=== PATIENT | female | born 1930 | race Caucasian/White ===

== ENCOUNTER 2018-03-01 10:19 | Inpatient (IN) | payer OTHER ==
--- OUTSIDE RECORDS SUMMARY | 2018-03-01 10:22 | XMS REPORT | Continuity of Care Document ---
:1930 Author Organization Interface Problems Problem Status Onset Date Classification Date Comments Source Reported Medications Medication Details Route Status Patient Ordering Order Source Instructions Provider Date Allergies, Adverse Reactions, Alerts Substance Category Reaction Severity Reaction Status Date Comments Source type Reported Immunizations Immunization Date Given Site Status Last Updated Comments Source Results Order Results Value Reference Date Interpretation Comments Source Name Range Vital Signs Vital Sign Value Date Comments Source Encounters Location Location Encounter Encounter Reason Attending ADM DC Status Source Details Type Number For Provider Date Date Visit Outpatient [id number] RAHUL 12/29 [facility] [id number] DAPHNE 02/02 [facility] [id number] DAPHNE 03/[address] [facility] [place] Procedures Procedure Code Date Perfomer Comments Source
--- NOTE | 2018-03-01 11:23 | ER ---
Nurse's Notes [facility] Name: Paulina Juarez Age: 87 yrs Sex: Female : 1930 Arrival Date: 03/01/2018 Time: 10:22 Bed 6 Private MD: Fernanda Chin C Diagnosis: Chest pain on breathing;Chronic obstructive pulmonary disease with (acute) exacerbation;Atrial fibrillation and flutter;Hypoxemia;Essential (primary) hypertension;Cardiomegaly Presentation: 03/01 10:36 Presenting complaint: Patient states: SOB that began 5 days ago. Pt states "I had about aa5 5 chest pains last night but it went away". Pt reports cough. Transition of care: patient was not received from another setting of care. Onset of symptoms was February 2018. Risk Assessment: Do you want to hurt yourself or someone else? Patient reports no desire to harm self or others. Initial Sepsis Screen: Does the patient meet any 2 criteria? No. Patient's initial sepsis screen is negative. Does the patient have a suspected source of infection? No. Patient's initial sepsis screen is negative. Care prior to arrival: None. 10:36 Method Of Arrival: Ambulatory aa5 10:36 Acuity: AGUSTINA 3 aa5 Triage Assessment: 10:50 General: Behavior is calm, cooperative. Respiratory: Onset: The symptoms/episode tw2 began/occurred 5 days ago, spouse reports he had noticed her coughing a bit more, pt states her inhalers are not working like they did before, the patient has moderate shortness of breath. Historical: - Allergies: 10:39 Latex, Natural Rubber; aa5 - PMHx: 10:39 Atrial Fib; Gout; Hypertension; aa5 10:40 COPD; aa5 - PSHx: 10:38 repair atrial septal defect; Cholecystectomy; Tonsillectomy; Tubal ligation; aa5 10:39 "open heart surgery to repair hole in the septum"; aa5 - Immunization history:: Pneumococcal vaccine is up to date, Flu vaccine is up to date. - Social history:: Smoking status: Patient/guardian denies using tobacco. - Ebola Screening: : No symptoms or risks identified at this time. - Family history:: not pertinent. Screenin:51 Abuse screen: Denies threats or abuse. Nutritional screening: No deficits noted. tw2 Tuberculosis screening: No symptoms or risk factors identified. Fall Risk None identified. Assessment: 10:49 General: Appears in no apparent distress. well groomed. Pain: Denies pain. Neuro: Level tw2 of Consciousness is awake, alert, obeys commands, Oriented to person, place, time, situation. Cardiovascular: Heart tones S1 S2 Capillary refill < 3 seconds Patient's skin is warm and dry. Rhythm is atrial fibrillation With PVC's. Respiratory: Reports shortness of breath at rest on exertion Airway is patent Respiratory effort is even, labored, Respiratory pattern is regular, symmetrical, Breath sounds with crackles bilaterally. GI: No signs and/or symptoms were reported involving the gastrointestinal system. Abdomen is flat. GI: Bowel sounds present X 4 quads. : No deficits noted. EENT: No deficits noted. Derm: No deficits noted. Musculoskeletal: Range of motion: intact in all extremities. 11:50 Reassessment: Patient appears in no apparent distress at this time. No changes from tw2 previously documented assessment. Patient and/or family updated on plan of care and expected duration. Pain level reassessed. Patient is alert, oriented x 3, equal unlabored respirations, skin warm/dry/pink. 12:59 Reassessment: Patient appears in no apparent distress at this time. No changes from tw2 previously documented assessment. Patient and/or family updated on plan of care and expected duration. Pain level reassessed. Patient is alert, oriented x 3, equal unlabored respirations, skin warm/dry/pink. Vital Signs: 10:39 BP 140 / 105; Pulse 69; Resp 16 S; Temp 98.0(TE); Pulse Ox 94% on R/A; Weight 54.39 kg aa5 (R); Height 5 ft. 3 in. (160.02 cm) (R); Pain 0/10; 11:50 BP 131 / 93; Pulse 77; Resp 15; Pulse Ox 99% on Nebulizer Mask; tw2 12:58 BP 144 / 85; Pulse 82; Resp 17; Pulse Ox 97% on 2 lpm NC; tw2 10:39 Body Mass Index 21.24 (54.39 kg, 160.02 cm) aa5 ED Course: 10:22 Patient arrived in ED. mr 10:23 Fernanda Chin MD is Private Physician. mr 10:37 Triage completed. aa5 10:37 Arm band placed on. aa5 10:43 Violetta Villegas RN is Primary Nurse. tw2 10:44 Placed in gown. Bed in low position. residential monitor on. Pulse ox on. NIBP on. tw2 10:50 Erasmo Muro MD is Attending Physician. radha 11:03 EKG done, by commercial service technician. reviewed by Erasmo Muro MD. at1 11:03 Inserted saline lock: 22 gauge in left antecubital area, using aseptic technique. Blood tw2 collected. 11:21 Fernanda Chin MD is Hospitalizing Provider. radha 12:00 X-ray completed. Portable x-ray completed in exam room. Patient tolerated procedure sw well. 12:01 XRAY Chest (1 view) In Process Unspecified. EDMS 13:02 Blood Culture Adult (2) Sent. tw2 13:02 No provider procedures requiring assistance completed. Patient admitted, IV remains in tw2 place. Administered Medications: 11:38 Drug: Xopenex 2.5 mg Route: Inhalation; tw2 13:01 Follow up: Response: No adverse reaction tw2 11:38 Drug: AtroVENT Aerosol 0.5 mg Route: Inhalation; tw2 13:01 Follow up: Response: No adverse reaction tw2 11:40 Drug: SOLU-Medrol 125 mg Route: IVP; Site: left antecubital; tw2 13:00 Follow up: Response: No adverse reaction tw2 11:42 Drug: Pepcid 20 mg Route: IVP; Site: left antecubital; tw2 12:59 Follow up: Response: No adverse reaction tw2 11:43 Drug: NS 0.9% 1000 ml Route: IV; Rate: 75 ml/hr; Site: left antecubital; tw2 12:59 Follow up: IV Status: Infusion continued upon admission tw2 12:40 Drug: Lasix 40 mg Route: IVP; Site: left antecubital; tw2 12:50 Follow up: Response: No adverse reaction tw2 12:42 Drug: Potassium Effervescent Tablet 25 mEq Route: PO; tw2 12:50 Follow up: Response: No adverse reaction tw2 Outcome: 11:22 Decision to Hospitalize by Provider. radha 13:05 Admitted to Med/surg via wheelchair, with oxygen, Report called to GRICEL Dixon tw2 13:05 Condition: stable 13:05 Instructed on the need for admit. 13:48 Patient left the ED. tw2 Signatures: Dispatcher [employer] EDErasmo Vanegas MD MD cha Rivera, Maria mr Mary Jane Dougherty, RN RN aa5 Brenda Sellers, manager program management EKG Tat1 Candi Bassett Tara, RN RN tw2 Corrections: (The following items were deleted from the chart) 10:56 10:49 Cardiovascular: Heart tones S1 S2 Capillary refill < 3 seconds Patient's skin is tw2 warm and dry. Rhythm is regular tw2
--- NOTE | 2018-03-01 11:23 | EDPHYS ---
Physician Documentation [facility] Name: Paulina Juarez Age: 87 yrs Sex: Female : 1930 Arrival Date: 03/01/2018 Time: 10:22 Bed 6 Private MD: Fernanda Chin C ED Physician Erasmo Muro HPI: 03/01 11:18 This 87 yrs old Female presents to ER via Ambulatory with complaints of radha Breathing Difficulty. 11:18 The patient has shortness of breath at rest, with light activity. Onset: The radha symptoms/episode began/occurred last night, 1 day(s) ago. Duration: The symptoms are chronic. The patient's shortness of breath has no apparent modifying factors. Associated signs and symptoms: The patient has no apparent associated signs or symptoms. Severity of symptoms: At their worst the symptoms were mild in the emergency department the symptoms are unchanged. Historical: - Allergies: 10:39 Latex, Natural Rubber; aa5 - PMHx: 10:39 Atrial Fib; Gout; Hypertension; aa5 10:40 COPD; aa5 - PSHx: 10:38 repair atrial septal defect; Cholecystectomy; Tonsillectomy; Tubal ligation; aa5 10:39 "open heart surgery to repair hole in the septum"; aa5 - Immunization history:: Pneumococcal vaccine is up to date, Flu vaccine is up to date. - Social history:: Smoking status: Patient/guardian denies using tobacco. - Ebola Screening: : No symptoms or risks identified at this time. - Family history:: not pertinent. ROS: 11:18 Constitutional: Negative for fever, chills, and weight loss, Eyes: Negative for injury, radha pain, redness, and discharge, ENT: Negative for injury, pain, and discharge, Neck: Negative for injury, pain, and swelling, Abdomen/GI: Negative for abdominal pain, nausea, vomiting, diarrhea, and constipation, Back: Negative for injury and pain, : Negative for injury, bleeding, discharge, and swelling, MS/Extremity: Negative for injury and deformity, Skin: Negative for injury, rash, and discoloration, Neuro: Negative for headache, weakness, numbness, tingling, and seizure, Psych: Negative for depression, anxiety, suicide ideation, homicidal ideation, and hallucinations, Allergy/Immunology: Negative for hives, rash, and allergies, Endocrine: Negative for neck swelling, polydipsia, polyuria, polyphagia, and marked weight changes, Hematologic/Lymphatic: Negative for swollen nodes, abnormal bleeding, and unusual bruising. 11:18 Constitutional: Positive for chills. 11:18 Cardiovascular: Positive for chest pain, palpitations. 11:18 Respiratory: Positive for cough, shortness of breath, wheezing, expiratory. Exam: 11:18 Constitutional: This is a well developed, well nourished patient who is awake, alert, radha and in no acute distress. Head/Face: Normocephalic, atraumatic. Eyes: Pupils equal round and reactive to light, extra-ocular motions intact. Lids and lashes normal. Conjunctiva and sclera are non-icteric and not injected. Cornea within normal limits. Periorbital areas with no swelling, redness, or edema. ENT: Nares patent. No nasal discharge, no septal abnormalities noted. Tympanic membranes are normal and external auditory canals are clear. Oropharynx with no redness, swelling, or masses, exudates, or evidence of obstruction, uvula midline. Mucous membranes moist. Neck: Trachea midline, no thyromegaly or masses palpated, and no cervical lymphadenopathy. Supple, full range of motion without nuchal rigidity, or vertebral point tenderness. No Meningismus. Chest/axilla: Normal chest wall appearance and motion. Nontender with no deformity. No lesions are appreciated. Cardiovascular: Regular rate and rhythm with a normal S1 and S2. No gallops, murmurs, or rubs. Normal PMI, no JVD. No pulse deficits. Abdomen/GI: Soft, non-tender, with normal bowel sounds. No distension or tympany. No guarding or rebound. No evidence of tenderness throughout. Back: No spinal tenderness. No costovertebral tenderness. Full range of motion. Female : Normal external genitalia. Skin: Warm, dry with normal turgor. Normal color with no rashes, no lesions, and no evidence of cellulitis. MS/ Extremity: Pulses equal, no cyanosis. Neurovascular intact. Full, normal range of motion. Neuro: Awake and alert, GCS 15, oriented to person, place, time, and situation. Cranial nerves II-XII grossly intact. Motor strength 5/5 in all extremities. Sensory grossly intact. Cerebellar exam normal. Normal gait. Psych: Awake, alert, with orientation to person, place and time. Behavior, mood, and affect are within normal limits. 11:18 Respiratory: the patient does not display signs of respiratory distress, Respirations: normal, Breath sounds: decreased breath sounds, that are mild, are scattered, rhonchi, that are mild, wheezing: expiratory is scattered. Vital Signs: 10:39 BP 140 / 105; Pulse 69; Resp 16 S; Temp 98.0(TE); Pulse Ox 94% on R/A; Weight 54.39 kg aa5 (R); Height 5 ft. 3 in. (160.02 cm) (R); Pain 0/10; 11:50 BP 131 / 93; Pulse 77; Resp 15; Pulse Ox 99% on Nebulizer Mask; tw2 12:58 BP 144 / 85; Pulse 82; Resp 17; Pulse Ox 97% on 2 lpm NC; tw2 10:39 Body Mass Index 21.24 (54.39 kg, 160.02 cm) aa5 MDM: 10:50 Patient medically screened. [facility] 11:18 Data reviewed: vital signs, nurses notes, lab test result(s), EKG, radiologic studies. [facility] 03/01 11:17 Order name: Basic Metabolic Panel [facility] 03/01 11:17 Order name: CBC with Diff; Complete Time: 11:59 radha 03/01 11:17 Order name: Ckmb; Complete Time: 11:59 [facility] 03/01 11:17 Order name: CPK; Complete Time: 11:59 radha 03/01 11:17 Order name: LFT's; Complete Time: 11:59 radha 03/01 11:17 Order name: Magnesium; Complete Time: 11:59 [facility] 03/01 11:17 Order name: NT PRO-BNP; Complete Time: 11:59 [facility] 03/01 11:17 Order name: PT-INR; Complete Time: 11:59 radha 03/01 11:17 Order name: Ptt, Activated; Complete Time: 11:59 [facility] 03/01 11:17 Order name: Troponin (emerg Dept Use Only); Complete Time: 11:59 [facility] 03/01 11:17 Order name: Lipase; Complete Time: 11:59 radha 03/01 11:17 Order name: Blood Culture Adult (2) radha 03/01 11:18 Order name: Basic Metabolic Panel; Complete Time: 11:59 EDMS 03/01 11:51 Order name: Basic Metabolic Panel EDAR 03/01 11:17 Order name: XRAY Chest (1 view); Complete Time: 13:25 [facility] 03/01 11:31 Order name: Echo with Doppler EDAR 03/01 11:51 Order name: Basic Metabolic Panel EDAR 03/01 11:51 Order name: CBC with Automated Diff EDMS 03/01 11:51 Order name: CBC with Automated Diff EDAR 03/01 11:51 Order name: NT PRO-BNP EDAR 03/01 11:51 Order name: NT PRO-BNP EDAR 03/01 11:51 Order name: Troponin I EDAR 03/01 11:51 Order name: Troponin I EDAR 03/01 11:51 Order name: Troponin I EDAR 03/01 11:51 Order name: Chest Single View EDAR 03/01 11:51 Order name: Chest Single View EDAR 03/01 11:17 Order name: EKG; Complete Time: 11:18 [facility] 03/01 11:17 Order name: Cardiac monitoring; Complete Time: 11:52 [facility] 03/01 11:17 Order name: EKG - Nurse/Tech; Complete Time: 11:52 [facility] 03/01 11:17 Order name: IV Saline Lock; Complete Time: 11:52 [facility] 03/01 11:17 Order name: Labs collected and sent; Complete Time: 11:52 [facility] 03/01 11:17 Order name: O2 Per Protocol; Complete Time: 11:52 [facility] 03/01 11:17 Order name: O2 Sat Monitoring; Complete Time: 11:52 [facility] 03/01 11:17 Order name: Urine Dipstick-Ancillary (obtain specimen); Complete Time: 13:02 [facility] 03/01 11:30 Order name: CONS Physician Consult [facility] 03/01 11:30 Order name: CONS Physician Consult [facility] 03/01 11:51 Order name: Heart Healthy [facility] 03/01 11:51 Order name: EKG Electrocardiogram [facility]AR 03/01 11:51 Order name: EKG Electrocardiogram EDAR Administered Medications: 11:38 Drug: Xopenex 2.5 mg Route: Inhalation; tw2 13:01 Follow up: Response: No adverse reaction tw2 11:38 Drug: AtroVENT Aerosol 0.5 mg Route: Inhalation; tw2 13:01 Follow up: Response: No adverse reaction tw2 11:40 Drug: SOLU-Medrol 125 mg Route: IVP; Site: left antecubital; tw2 13:00 Follow up: Response: No adverse reaction tw2 11:42 Drug: Pepcid 20 mg Route: IVP; Site: left antecubital; tw2 12:59 Follow up: Response: No adverse reaction tw2 11:43 Drug: NS 0.9% 1000 ml Route: IV; Rate: 75 ml/hr; Site: left antecubital; tw2 12:59 Follow up: IV Status: Infusion continued upon admission tw2 12:40 Drug: Lasix 40 mg Route: IVP; Site: left antecubital; tw2 12:50 Follow up: Response: No adverse reaction tw2 12:42 Drug: Potassium Effervescent Tablet 25 mEq Route: PO; tw2 12:50 Follow up: Response: No adverse reaction tw2 Disposition: 03/01/18 11:22 Hospitalization ordered by Fernanda Chin for Observation. Preliminary diagnosis are Chest pain on breathing, Chronic obstructive pulmonary disease with (acute) exacerbation, Atrial fibrillation and flutter, Hypoxemia, Essential (primary) hypertension, Cardiomegaly. - Bed requested for Telemetry/MedSurg (observation). - Status is Observation. tw2 - Condition is Fair. - Problem is new. - Symptoms have improved. UTI on Admission? No Signatures: Dispatcher [employer] EDMS Penny Brown Corey, MD MD cha Calderon, Audri RN RN aa5 Violetta Villegas RN RN tw2 Corrections: (The following items were deleted from the chart) 11:30 11:22 Hospitalization Ordered by A Giuseppe SOMMERS for Observation. Preliminary diagnosis is radha Chest pain on breathing; Chronic obstructive pulmonary disease with (acute) exacerbation; Atrial fibrillation and flutter; Hypoxemia. Bed requested for Telemetry/MedSurg (observation). Status is Observation. Condition is Fair. Problem is new. Symptoms have improved. UTI on Admission? No. radha 12:08 11:30 03/01/2018 11:22 Hospitalization Ordered by A Giuseppe SOMMERS for Observation. bd Preliminary diagnosis is Chest pain on breathing; Chronic obstructive pulmonary disease with (acute) exacerbation; Atrial fibrillation and flutter; Hypoxemia; Essential (primary) hypertension. Bed requested for Telemetry/MedSurg (observation). Status is Observation. Condition is Fair. Problem is new. Symptoms have improved. UTI on Admission? No. radha 12:18 12:08 03/01/2018 11:22 Hospitalization Ordered by A Giuseppe SOMMERS for Observation. radha Preliminary diagnosis is Chest pain on breathing; Chronic obstructive pulmonary disease with (acute) exacerbation; Atrial fibrillation and flutter; Hypoxemia; Essential (primary) hypertension. Bed requested for Telemetry/MedSurg (observation). Status is Observation. Condition is Fair. Problem is new. Symptoms have improved. UTI on Admission? No. bd 13:48 12:18 03/01/2018 11:22 Hospitalization Ordered by A Giuseppe SOMMERS for Observation. tw2 Preliminary diagnosis is Chest pain on breathing; Chronic obstructive pulmonary disease with (acute) exacerbation; Atrial fibrillation and flutter; Hypoxemia; Essential (primary) hypertension; Cardiomegaly. Bed requested for Telemetry/MedSurg (observation). Status is Observation. Condition is Fair. Problem is new. Symptoms have improved. UTI on Admission? No. radha
[2018-03-01 11:35] LABS: Absolute Lymphocytes (CBC) 1.4 K/uL (0.7-4.9); Absolute Monocytes 0.7 K/uL (0.1-1.3); Absolute Neutrophil 3.3 K/uL (1.8-8.0); Basophils % 1.2 % (0-1.3); Eosinophils % 3.1 % (0-4.4); Hematocrit 44.5 % (36.0-45.0); Lymphocytes % 24.7 % (15.3-44.8); MCH 31.2 pg (27.0-35.0); MCV 93.8 fL (80-100); MPV 9.1 fL (7.6-11.3); Monocytes % 11.9 % (3.3-12.3); RBC Red Blood Cell Count 4.74 M/uL (3.86-4.86)
[2018-03-01] MEDS ORDERED: IPRATROPIUM BROM 0.5MG/2.5ML ONE (11:36)
[2018-03-01] MEDS ORDERED: NA CHLORIDE 0.9% 1,000 ML ONE (11:36)
[2018-03-01] MEDS ORDERED: LEVALBUTEROL 1.25 MG/3 ML NEB ONE (11:36)
[2018-03-01] MEDS ORDERED: METHYLPREDNISOLONE 125 MG INJ ONE (11:36)
[2018-03-01] MEDS ORDERED: FAMOTIDINE 20 MG/2 ML VIAL IV ONE (11:37)
[2018-03-01] MEDS ORDERED: ACETAMINOPHEN 500 MG TAB PO PRN (11:48)
[2018-03-01] MEDS ORDERED: IPRATROPIUM BROM 0.5MG/2.5ML NEB PRN (11:48)
[2018-03-01] MEDS ORDERED: ONDANSETRON 4 MG/2 ML VIAL IV PRN (11:48)
[2018-03-01] MEDS ORDERED: ALBUTEROL 2.5 MG/3 ML NEB SOL NEB PRN (11:48)
[2018-03-01 11:52] LABS: Protime INR 1.19
[2018-03-01 11:57] LABS: ALT/SGPT 17 U/L (12-78); AST/SGOT 19 U/L (15-37); Albumin 4.1 g/dL (3.4-5.0); Alkaline Phosphatase 62 U/L (45-117); BUN Blood Urea Nitrogen 19 mg/dL (7-18); Bicarbonate 32 mmol/L (21-32); Bilirubin Direct 0.2 mg/dL (0-0.2); Bilirubin Total 0.6 mg/dL (0.2-1.0); CKMB Creatine Kinase MB 1.3 ng/mL (0.3-3.6); Creatine Phosphokinase 60 U/L (26-192); Glucose Level 96 mg/dL (74-106); Lipase 132 U/L (73-393); Magnesium 2.4 mg/dL (1.8-2.4); NT PRO-BNP 2654 pg/mL (<450); Potassium 4.4 mmol/L (3.5-5.1); Protein, Total 7.5 g/dL (6.4-8.2); Sodium Level 139 mmol/L (136-145); Troponin (Emerg Dept Use Only) < 0.02 ng/mL (0.0-0.045)
[2018-03-01] MEDS ORDERED: POTASSIUM 25 MEQ EFFERV TAB ONE (12:40)
[2018-03-01] MEDS ORDERED: FUROSEMIDE 40 MG/4 ML VIAL ONE (12:40)
--- NOTE | 2018-03-01 12:41 | RAD REPORT ---
EXAM DESCRIPTION: RAD - Chest Single View - 03/01/2018 12:04 pm CLINICAL HISTORY: COPD;Cough Chest pain. COMPARISON: Chest Pa And Lat (2 Views) dated 09/15/2016; CHEST SINGLE VIEW dated 08/16/2014; CHEST PA AND LAT 2 VIEW dated 04/24/2013; CHEST SINGLE VIEW dated 01/10/2010 FINDINGS: Portable technique limits examination quality. The lungs are emphysematous with linear scarring in both mid lungs. Significant cardiomegaly is seen. No displaced fractures.Sternotomy wires present. IMPRESSION: Prominent COPD. Advanced cardiomegaly.
[2018-03-01 13:39] VITALS: BMI 21.2
[2018-03-01 15:29] LABS: Urine Blood NEGATIVE (NEG); Urine Glucose NEGATIVE (NEG); Urine Protein NEGATIVE (NEG); Urine Specific Gravity 1.015 (1.005-1.030)
[2018-03-01] MEDS: METHYLPREDNISOLONE 40 MG INJ IV SCH (17:40)
--- NOTE | 2018-03-01 17:52 | EKG ---
Test Date: 2018-03-01 Test Time: 10:55:51 Slat Basket Top Maker: ROB MEASUREMENT RESULTS: Intervals: Rate: 59 IN: QRSD: 88 QT: 476 QTc: 471 [place]: P: IN: QRS: 80 T: -15 INTERPRETIVE STATEMENTS: Atrial fibrillation with slow ventricular response Voltage criteria for left ventricular hypertrophy ST & T wave abnormality, consider inferolateral ischemia or digitalis effect Prolonged QT Abnormal ECG Compared to ECG 08/16/2014 10:49:20 No significant changes Electronically Signed On 03-01-18 17:50:45 CDT by oMo Mann
[2018-03-01] MEDS ORDERED: HOME MED 1 EA UNK (Albuterol Sulfate [Proair Respiclick] 1 PUFF) IH PRN (20:08)
[2018-03-01] MEDS: APIXABAN 2.5 MG TABLET PO SCH (20:38)
[2018-03-01] MEDS: FAMOTIDINE 20 MG/2 ML VIAL IV SCH (20:38)
[2018-03-01] MEDS ORDERED: APIXABAN PO SCH (21:00)
[2018-03-01] MEDS ORDERED: HOME MED 1 EA UNK (Glycopyrrolate/Formoterol Fum [Bevespi Aerosphere Inhaler] 2 PUFF) PO SCH (21:00)
[2018-03-02] MEDS: METHYLPREDNISOLONE 40 MG INJ IV SCH ×2 (00:39→09:05)
--- NOTE | 2018-03-02 01:17 | HP ---
Date of Admission: 03/01/2018 Chief Complaint: Shortness of breath. History Of Present Illness: An 87-year-old female patient who woke up from sleep about 5 days ago wi th chest pain. The patient describes her pain as hard, pain in the center of the chest as if her hea rt was beating too hard and it happened 5 different times, and since that time, she has been having s hortness of breath. She denies any expectoration, fever, chills, nausea, vomiting. Today, she came into emergency room after she was evaluated, she was admitted to the hospital. When I saw her, her h usband was present with her at bedside. Allergies: NO KNOWN ALLERGIES, BUT SHE HAD MYALGIA TYPE OF SIDE EFFECT WITH STATINS. Medications: Allopurinol 300 mg daily, Bevespi inhaler 2 puffs 2 times a day, Claritin 10 mg daily a s needed, colchicine 0.6 mg p.o. 2 times a day as needed for gout, Eliquis 2.5 mg 2 times a day, meto prolol 50 mg p.o. 1 tablet in the morning and half a tablet in the evening, multivitamin daily, ProAi r inhaler 2 puffs every 4 to 6 hours as needed. Review of Systems: Respiratory: As mentioned above. Cardiovascular: As mentioned above. All other systems reviewed and negative. Past Medical History: Significant for hypertension, chronic atrial fibrillation, hyperlipidemia, gou t, diverticulosis, osteoarthritis at multiple sites, hypothyroidism, osteoporosis. Past Surgical History: Carpal tunnel surgery, cataract surgery, cholecystectomy, and repair of atria l septal defect. Family History: Significant for heart disease. Social History: Prior history of smoking, not at present time. Use of alcohol negative. Physical Examination: Vital Signs: This evening when I saw her, temperature 98.2, pulse 87, respiratory rate 20, blood pre ssure 150/86, oxygen saturation 96%. Height 5 feet 3 inches, weight 119 pounds. General: Awake, alert, oriented, not in distress. HEENT: Head atraumatic, normocephalic. Conjunctivae nonerythematous. Sclerae white. Mouth, no thr ush or edema noted. Ears/Nose, no mass, lesion, discharge noted. Neck: Supple. No JVD, lymph nodes, bruit, thyromegaly noted. Lungs: Presence of some rales noted in lower lung funez, not in respiratory distress. Heart: Normal heart sounds, no murmur or gallop. Abdomen: Soft, bowel sounds normal. No guarding, rigidity, tenderness, mass, hepatosplenomegaly, dis tention, or bruit noted. Extremities: No leg edema. No calf tenderness. Skin: No rash, ulcer, cellulitis. Lymphatics: No lymph node enlargement in neck, supraclavicular, infraclavicular region. Neuro: No focal neurological deficit. Chest: Unremarkable. External Genitalia: Deferred. Rectal: Deferred. Laboratory Data: Chest x-ray shows prominent COPD and presence of cardiomegaly. Electrocardiogram, atrial fibrillation with slow ventricular response. White count 5.6, hemoglobin 14.8, platelets 185. ProBNP 2654. Liver function tests unremarkable. Troponin less than 0.02. Lipase 132. Sodium 139 , potassium 4.4, chloride 103, bicarb 32, BUN 19, creatinine 0.70, glucose 96. Urinalysis negative. Impression: 1.Congestive heart failure. 2.Chronic atrial fibrillation. 3.Hypertension. 4.Chronic anticoagulation therapy. 5.Osteoarthritis, multiple sites. 6.Hyperlipidemia. 7.Diverticulosis. 8.Chronic obstructive pulmonary disease. 9.Hypothyroidism. 10.Diverticulosis. Plan: Admit the patient to hospital for further evaluation and management of this problem. The forrest ent is appropriate for inpatient and is expected to spend 2 midnights in hospital. We will go ahead and continue her home medications per order. Echocardiogram will be done. Consult Cardiology. Card iac enzymes negative so far and we will go ahead and get a CT scan of the chest per PE protocol. Las ix 40 mg IV was given in the emergency room and we will go ahead and give Lasix 20 mg IV 2 times a da y, starting tomorrow. Details and plan of treatment discussed with her. ANTONIO/RENY Voice ID: [id number]
[2018-03-02 04:43] LABS: Absolute Lymphocytes (CBC) 1.1 K/uL (0.7-4.9); Absolute Monocytes 0.1 K/uL (0.1-1.3); Absolute Neutrophil 4.9 K/uL (1.8-8.0); Basophils % 0.2 % (0-1.3); Hematocrit 42.7 % (36.0-45.0); Lymphocytes % 18.6 % (15.3-44.8); MCH 30.9 pg (27.0-35.0); MPV 9.4 fL (7.6-11.3); Monocytes % 1.5 % (3.3-12.3); RBC Red Blood Cell Count 4.59 M/uL (3.86-4.86)
[2018-03-02] MEDS: METOPROLOL XL 50 MG TAB PO SCH (06:00)
--- NOTE | 2018-03-02 07:06 | CON ---
Date of Consultation: 03/02/[address] Chin's service on 03/01/2018. I saw the patient on 03/02/2018. Reason For Consultation: Chest pain, shortness of breath, and atrial fibrillation. History Of Present Illness: Ms. Juarez is an 87-year-old woman with history of atrial fibrillation jeff t is chronic for which she takes Eliquis and Toprol. 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 She came in with shortness of breath, chest pain, and history of COPD. She has already ruled out for an [place], atrial fibrillation with a rate of 59. Chest x-ray shows COPD. She had a BNP of 2654. Asymptomatic now. Past Medical History: As stated above. Allergies: LATEX. Review of Systems: Negative. Medication: Multiple inhalers, Eliquis, allopurinol, and Toprol. Family History: Negative. Social History: Unremarkable. Physical Examination: Vital Signs: Stable, afebrile, atrial fibrillation at a rate of 60. HEENT: Negative. Neck: Supple. No bruit. Chest: Clear. Cardiac: Revealed atrial fibrillation. Abdomen: Benign. Extremities: Revealed no clubbing, cyanosis, or edema. Diagnostic Data: As stated earlier. An echocardiogram is pending. Impression And Plan: 1.Chronic atrial fibrillation, rate control on anticoagulation and beta-james. 2.Shortness of breath and chest pain possibly secondary to chronic obstructive pulmonary disease and pleurisy. 3.History of gout. 4.Hypertension, well controlled. 5.Status post atrial septal defect repair. We will continue on present regimen for now. I will discuss the case further with Dr. Chin. I am no t so sure how aggressive we need to be in her workup in addition to which she has already had. We wi ll see what the echocardiogram shows and make further decisions. She may be a candidate for a Lexisc an later. MICH/RENY Voice ID: [id number] Report ID: [id number]
[2018-03-02] MEDS ORDERED: METOPROLOL SUCCINATE PO SCH ×2 (08:00→17:00)
[2018-03-02] MEDS ORDERED: ALLOPURINOL PO SCH (09:00)
[2018-03-02] MEDS ORDERED: [UNRECOGNIZED DRUG - OTHER] PO SCH (09:00)
[2018-03-02] MEDS: APIXABAN 2.5 MG TABLET PO SCH ×2 (09:00→20:43)
[2018-03-02] MEDS ORDERED: CALCIUM CARB PO SCH (09:00)
[2018-03-02] MEDS ORDERED: MULTIVITAMIN PO SCH (09:00)
[2018-03-02] MEDS ORDERED: VIT K1 PO SCH (09:00)
[2018-03-02] MEDS ORDERED: VITAMIN D3 PO SCH (09:00)
--- NOTE | 2018-03-02 09:02 | RAD REPORT ---
EXAM DESCRIPTION: RAD - Chest Single View - 03/02/2018 6:17 am CLINICAL HISTORY: Chest Pain Chest pain. COMPARISON: Chest Single View dated 03/01/2018; Chest Pa And Lat (2 Views) dated 09/15/2016; CHEST SING LE VIEW dated 08/16/2014; CHEST PA AND LAT 2 VIEW dated 04/24/2013 FINDINGS: Portable technique limits examination quality. Diffuse COPD is present with linear scarring in both mid lungs. The heart is significantly enlarged i n size. No displaced fractures.Sternotomy wires are present. IMPRESSION: No acute intrathoracic process suspected.
[2018-03-02] MEDS: FUROSEMIDE 20 MG TABLET PO SCH ×2 (09:04→17:12)
[2018-03-02] MEDS: FAMOTIDINE 20 MG/2 ML VIAL IV SCH (09:05)
--- NOTE | 2018-03-02 11:11 | EKG ---
Test Date: 2018-03-02 Test Time: 09:58:30 Seat Builder: MELISSA MEASUREMENT RESULTS: Intervals: Rate: 77 [place]: QRSD: 90 QT: 466 QTc: 527 [place]: P: OR: QRS: 82 T: 268 INTERPRETIVE STATEMENTS: Atrial fibrillation RSR' or QR pattern in V1 suggests right ventricular conduction delay Voltage criteria for left ventricular hypertrophy Anteroseptal infarct, age undetermined Marked ST abnormality, possible inferior subendocardial injury Prolonged QT Abnormal ECG Compared to ECG 03/01/2018 10:55:51 RSR' in V1 or V2 now present Myocardial infarct finding now present Possible ischemia no longer present ST (T wave) deviation still present Electronically Signed On 03-02-18 11:11:16 CDT by Moo Mann
--- NOTE | 2018-03-02 11:29 | ECHO ---
HEIGHT: 5 ft 3 in WEIGHT: 119 lb 10.4 oz DATE OF STUDY: 03/02/[address]: Erasmo Muro MD 2-DIMENSIONAL: YES M.MODE: YES DOPPLER: YES COLOR FLOW: YES TDS: NO PORTABLE: NO DEFINITY: NO BUBBLE STUDY: NO DIAGNOSIS: CHEST PAIN, COPD, ATRIAL FIBRILLATION CARDIAC HISTORY: CATHERIZATION: YES SURGERY: YES PROSTHETIC VALVE: NO PACEMAKER: NO MEASUREMENTS (cm) DIASTOLIC (NORMALS) SYSTOLIC (NORMALS) IVSd 1.0 (0.6-1.2) LA Diam 4.9 (1.9-4.0) LVEF 69% LVIDd 4.6 (3.5-5.7) LVIDs 2.8 (2.0-3.5) %FS 39% LVPWd 0.9 (0.6-1.2) Ao Diam 2.9 (2.0-3.7) 2 DIMENSIONAL ASSESSMENT: RIGHT ATRIUM: DILATED LEFT ATRIUM: DILATED RIGHT VENTRICLE: NORMAL LEFT VENTRICLE: NORMAL TRICUSPID VALVE: NORMAL MITRAL VALVE: MITRAL VALVE PROLAPSE PULMONIC VALVE: NORMAL AORTIC VALVE: SCLEROSIS PERICARDIAL EFFUSION: NONE AORTIC ROOT: NORMAL LEFT VENTRICULAR WALL MOTION: NORMAL DOPPLER/COLOR FLOW: MILD TRICUPSID REGURGITATION. NORMAL RIGHT VENTRICULAR SYSTOLIC PRESSURE. COMMENTS: NORMAL LEFT VENTRICULAR SIZE AND FUNCTION. MITRAL VALVE PROLAPSE. LEFT AND RIGHT ATRIAL ENLARGEMENT. NO ATRIAL SEPTAL DEFECT. AORTIC SCLEROSIS. MITRAL VALVE PROLAPSE. TECHNOLOGIST: Johnathan LOUIS
--- NOTE | 2018-03-02 14:25 | P.CNS ---
Date of Consult: 03/02/18 Chief Complaint: COPD exacerbation History of Present Illness: Patient is 87 years of age well known to me with a history of COPD problems started about 5 days prior to admission when she started complaining of an irregular heartbeat and then developed some shortness of breath and was admitted from the emergency room patient does have a history of chronic AFib seems to be doing a little better Allergies Latex, Natural Rubber Allergy (Verified 03/02/18 10:05) Itching/Hives/Rash Home Medications: Albuterol Sulfate [Proair Respiclick] 1 puff IH Q6HR PRN 03/01/18 Allopurinol 1 tab PO DAILY 03/01/18 Apixaban [Eliquis *] 1 tab PO BID 03/01/18 Calcium Carb/Vitamin D3/Vit K1 [Calcium + D Soft Chewable Tab] 1,000 iu PO DAILY 03/01/18 Glycopyrrolate/Formoterol Fum [Bevespi Aerosphere Inhaler] 2 puff PO BID Metoprolol Succinate [Toprol Xl*] 1 tab PO DAILY WITH BREAKFAST 03/01/18 Metoprolol Succinate [Toprol Xl] 0.5 tab PO DAILY AT SUPPER 03/01/18 Multivitamin [One Daily Multivitamin] 1 each PO DAILY 03/01/18 - Past Medical/Surgical History Diabetic: No -: COPD, AFIB, GOUT, HTN -: Repair of atrium septal defect, CHOLECYSTECTOMY, TONSILECTOMY -: TUBAL LIGATION - Family History Father History Unknown: Yes Mother Medical History: Other (see notes) Notes: degenerating heart - Social History Alcohol use: No CD- Drugs: No Caffeine use: Yes Place of Residence: Home Review of Systems 10-point ROS is otherwise unremarkable General: Weakness Respiratory: Shortness of Breath Physical Examination Temp Pulse Resp BP Pulse Ox 97.9 F 79 18 127/76 95 03/02/18 08:00 03/02/18 09:04 03/02/18 08:00 03/02/18 09:04 03/02/18 08:00 General: Alert, Oriented x3 Neck: Supple Respiratory: Clear to auscultation bilaterally Cardiovascular: No edema, Irregular heart rate/rhythm Gastrointestinal: Normal bowel sounds, Soft and benign Laboratory Data (last 24 hrs) 03/01/18 19:10: Troponin I < 0.02 03/01/18 15:02: Troponin I < 0.02 - Problems (1) COPD exacerbation Current Visit: Yes Status: Acute Plan: Patient is 87 years of age with a history of COPD admitted with palpitation and shortness of breath echocardiogram shows normal left ventricular function cardiomegaly patient's BNP was elevated patient is in chronic AFib I agree with Lasix continue with bronchodilators change to p.o. prednisone Dc IV from ordered in daily room air pulse ox rate control possible discharge tomorrow
--- NOTE | 2018-03-02 15:52 | RAD REPORT ---
EXAM DESCRIPTION: CT - Chest For Pe Angio - 03/02/2018 2:51 pm CLINICAL HISTORY: Chest pain COMPARISON: 2013 TECHNIQUE: Dynamically enhanced axial 3 mm thick images of the chest were obtained during administra tion of <100> mL Isovue 370 IV contrast. Coronal and oblique reconstruction images were generated and reviewed. Exam utilizes a protocol for optimal evaluation of pulmonary arterial tree. Maximum intensity projections 3D imaging was utilized All CT scans are performed using dose optimization technique as appropriate and may include automated exposure control or mA/KV adjustment according to patient size. FINDINGS: A pulmonary embolus is not seen. The main pulmonary artery is dilated which may indicate p ulmonary arterial hypertension 1 A thoracic aortic aneurysm is not noted. The heart is markedly enlarged. A pleural effusion is not seen. A pericardial effusion is not seen. Mild ground-glass opacities are present within the lungs bilaterally IMPRESSION: Negative for a pulmonary embolism. Mild ground-glass opacities within the lungs indicative of a mild alveolitis
[2018-03-02] MEDS: predniSONE 20 MG TAB PO SCH (20:41)
--- NOTE | 2018-03-03 00:42 | PN ---
Date of Progress Note: 03/02/2018 Subjective: Patient was seen this morning for followup. No new complaints or problems reported by h er except her shortness of breath. Objective: Vital Signs: Reviewed. HEENT: Unremarkable. Lungs: Bilateral good equal air entry. Presence of some rales noted in lower lung funez, not in re spiratory distress. Heart: Sounds normal. Abdomen: Soft. Bowel sounds normal. No guarding, rigidity, tenderness, or distention. Extremities: No leg edema. Laboratory Data: White count 6.2, hemoglobin 14.2, platelets 199. Sodium 138, potassium 4, chloride 102, bicarb 32, BUN 24, creatinine 0.70, glucose 160. ProBNP 4168. Impression: 1.Congestive heart failure. 2.Acute exacerbation of chronic obstructive pulmonary disease. 3.Chronic atrial fibrillation. Plan: We will continue current medication. We will continue IV Lasix, oxygen, nebulizer treatment, IV steroid, and the patient's echocardiogram result was pending this morning when I saw her which I h ave reviewed it. Her ejection fraction is 69%. She does have mitral valve prolapse. After reviewin g the echocardiogram result, CT scan of the chest per PE protocol was ordered. We will see her tomor row for followup, possible discharge to go home tomorrow. ANTONIO/MODL Voice ID: [id number] Report ID: [id number]
[2018-03-03] MEDS: METOPROLOL XL 50 MG TAB PO SCH (06:00)
[2018-03-03] MEDS: APIXABAN 2.5 MG TABLET PO SCH (09:00)
[2018-03-03 09:59] VITALS: BP 155/91; TEMP 97.8
[2018-03-03] MEDS: predniSONE 20 MG TAB PO SCH (10:15)
[2018-03-03] MEDS: FUROSEMIDE 20 MG TABLET PO SCH (10:15)
[2018-03-03 11:00] VITALS: O2SAT 91
--- NOTE | 2018-03-04 09:51 | DS ---
Date of Discharge: 03/03/2018 Disposition: Discharged to go home. Physical Examination: HEENT: Unremarkable. Lungs: Clear to auscultation. Heart: Sounds normal. Abdomen: Soft. Bowel sounds normal. No guarding, rigidity, tenderness, or distention. Extremities: No leg edema. Discharge Medications And Instructions: 1.Continue all prior home medication. 2.Use prednisone as prescribed which is 10 mg tablet. The patient to take 3 tablets daily for 3 day s, then 2 tablets daily for 3 days, then 1 tablet daily for 3 days, then stop. 3.Follow up at my office in 2 weeks. 4.Follow up with Dr. Dominguez and Dr. Jimenes as per her scheduled appointment. Hospital Course: An 87-year-old female patient admitted to the hospital with complaints of shortness of breath. Please see dictated H and P for more information. After the patient was evaluated in e ER, she was admitted to the hospital. The patient was treated for congestive heart failure and FAMILY RESOURCE SPECIALIST D exacerbation. She was given oxygen, nebulizer treatment, IV steroid, and IV Lasix. Her condition improved with treatment provided to her. Cardiology consultation and Pulmonary consultation was requ ested. Her echocardiogram showed ejection fraction 69%, presence of mitral valve prolapse, enlargeme nt of left and right atrium. CT scan of the chest per PE protocol was negative for pulmonary embolis m, which showed mild ground glass opacity within lungs indicating alveolitis type of picture. Overal l, her condition has improved. Shortness of breath has improved significantly. This morning, she wa s feeling much better, sitting in chair, denied any complaints, and her was present with her at bedside. The patient was discharged to go home in stable condition with her above-mentioned medic ation and instructions. Final Diagnoses: 1.Acute exacerbation of chronic obstructive pulmonary disease. 2.Congestive heart failure, acute, diastolic. 3.Mitral valve prolapse. 4.Chronic atrial fibrillation. 5.Chronic anticoagulation therapy. 6.Hypertension. 7.Osteoarthritis, on multiple sites. 8.Hyperlipidemia. 9.Diverticulosis. 10.Hypothyroidism. ANTONIO/MODL Voice ID: [id number] Report ID: [id number]
== END 2018-03-03 11:17 | disposition home or self-care (01) | DRG 190 ==
LOC: ER 10:19 → ERHOLD 11:27 → 4TH 11:27 → UNDOADMOB 11:27 → OBSVTOIN 20:09
PROVIDERS: ADMIT Internal Medicine; ATTEND Internal Medicine
DX: J44.1 Chronic obstructive pulmonary disease with (acute) exacerbation (principal); I50.31 Acute diastolic (congestive) heart failure; I11.0 Hypertensive heart disease with heart failure; I48.2 Chronic atrial fibrillation; I34.1 Nonrheumatic mitral (valve) prolapse; Z79.01 Long term (current) use of anticoagulants; M15.9 Polyosteoarthritis, unspecified; E78.5 Hyperlipidemia, unspecified; E03.9 Hypothyroidism, unspecified; K57.30 Diverticulosis of large intestine without perforation or abscess without bleeding; Z91.040 Latex allergy status; M10.9 Gout, unspecified; Z87.891 Personal history of nicotine dependence; R09.02 Hypoxemia
CPT/HCPCS: 36415; 71045; 71275; 80048; 80076; 81003; 82550; 82553; 83690; 83735; 83880; 84484; 85025; 85610; 85730; 87040; 93005; 93306; 94760; 96361; 96374; 96375; 99285; G0378; J2920; J2930; J7030; J7512; Q9967

== ENCOUNTER 2018-09-20 15:00 | Inpatient (IN) | payer OTHER ==
--- OUTSIDE RECORDS SUMMARY | 2018-09-20 15:03 | XMS REPORT | Continuity of Care Document ---
[...] Number For Provider Date Date Visit Outpatient [id number] RAHUL 12/29 [facility] [place] [facility] [id number] DAPHNE 02/02 [facility] [place] [id number] DAPHNE 03/29 [facility]2016 [place] Procedures Procedure Code Date Perfomer Comments Source
--- NOTE | 2018-09-20 17:04 | RAD REPORT ---
EXAM DESCRIPTION: [place] Single View09/20/2018 4:54 pm CLINICAL HISTORY: Chest pain COMPARISON: February 2018 FINDINGS: The lungs appear clear of acute infiltrate. The heart is markedly enlarged. Postsurgical changes involve the chest. IMPRESSION: No acute abnormalities displayed
[2018-09-20 17:30] LABS: Absolute Monocytes 0.9 K/uL (0.1-1.3); Absolute Neutrophil 6.3 K/uL (1.8-8.0); Basophils % 0.5 % (0-1.3); Eosinophils % 0.6 % (0-4.4); Hematocrit 44.6 % (36.0-45.0); Lymphocytes % 12.3 % (15.3-44.8); MPV 9.1 fL (7.6-11.3); Monocytes % 11.2 % (3.3-12.3); Protime INR 1.3; RBC Red Blood Cell Count 4.77 M/uL (3.86-4.86)
[2018-09-20] MEDS ORDERED: ASPIRIN 81 MG CHEWABLE TABLET ONE (17:34)
[2018-09-20 17:56] LABS: Albumin 4.1 g/dL (3.4-5.0); Bilirubin Direct 0.2 mg/dL (0-0.2); Bilirubin Total 0.7 mg/dL (0.2-1.0); Potassium 3.8 mmol/L (3.5-5.1); Protein, Total 7.4 g/dL (6.4-8.2)
[2018-09-20 18:10] LABS: Troponin (Emerg Dept Use Only) 8.71 ng/mL (0.0-0.045)
[2018-09-20] MEDS ORDERED: METOPROLOL TAR 25 MG TAB ONE (18:26)
[2018-09-20 18:27] LABS: Urine Bacteria <20 /HPF (<20); Urine Culture Reflex Order NOT NEEDED; Urine Mucus 1+ /HPF (NONE SEEN); Urine RBC <5 /HPF (NONE SEEN)
--- NOTE | 2018-09-20 19:58 | RAD REPORT ---
EXAM DESCRIPTION: CT - Head Brain Wo Cont - 09/20/2018 7:30 pm CLINICAL HISTORY: Dizziness COMPARISON: 2016 TECHNIQUE: Computed axial tomography of the head was obtained. IV contrast was not requested. All CT scans are performed using dose optimization technique as appropriate and may include automated exposure control or mA/KV adjustment according to patient size. FINDINGS: An intracranial bleed is not seen . Cerebral atrophy is seen The ventricles are normal in caliber. No extra-axial fluid collection is noted. Mild to moderate low-density areas within periventricular, deep and subcortical white matter likely represent ischemic changes secondary to small vessel disease . Fluid within the sinuses/ mastoids is not seen. IMPRESSION: No acute intracranial abnormality is seen. If patient's symptoms persist MRI of the bra in would be recommended.
--- NOTE | 2018-09-20 20:19 | EKG ---
Test Date: 2018-09-20 Test Time: 16:17:42 Battery Tester And Repairer: MELISSA MEASUREMENT RESULTS: Intervals: Rate: 79 [place]: QRSD: 130 QT: 428 QTc: 490 [place]: P: [place]: QRS: 77 T: -83 INTERPRETIVE STATEMENTS: Atrial fibrillation Left ventricular hypertrophy with QRS widening Cannot rule out Septal infarct, age undetermined Marked T wave abnormality, consider anterolateral ischemia Abnormal ECG Compared to ECG 03/02/2018 09:58:30 no significant change from previous ECG Electronically Signed On 09-20-18 20:18:20 CDT by Darrius Jimenes
[2018-09-20 20:22] LABS: Urine Glucose NEGATIVE (NEG); Urine Specific Gravity 1.025 (1.005-1.030)
[2018-09-20 20:23] LABS: Urine Blood 2+ (NEG); Urine Protein TRACE (NEG); Urine pH 5.5 (5.0-7.0)
--- NOTE | 2018-09-20 20:38 | EDPHYS ---
Physician Documentation [facility] Name: Paulina Juarez Age: 88 yrs Sex: Female : 1930 Arrival Date: 09/20/2018 Time: 15:03 Bed 10 Private MD: ED Physician Rogelio Naranjo HPI: 09/20 16:15 This 88 yrs old Female presents to ER via Ambulatory with complaints of cp General Weakness. 16:15 The patient or guardian reports chest pain that is located primarily in the anterior cp chest wall, bilaterally. 16:15 Onset: today. The pain does not radiate. Associated signs and symptoms: Pertinent cp positives: near-syncope. The chest pain is described as tightness. Duration: The patient or guardian reports a single episode, that is now resolved. Modifying factors: The symptoms are alleviated by nothing. the symptoms are aggravated by nothing. Historical: - Allergies: 15:16 Latex, Natural Rubber; tw2 - Home Meds: 15:16 albuterol sulfate 2.5 mg/0.5 mL Inhl nebu 0.5 mL every 6 hours [Active]; Ventolin HFA tw2 90 mcg/actuation Nebulizer HFAA 2 puffs every 4-6 hours [Active]; Eliquis 2.5 mg oral tab 1 tab 2 times per day [Active]; metoprolol succinate 50 mg oral Tb24 1 tab once daily [Active]; theophylline 200 mg Oral Tb12 1 tab every 12 hours [Active]; allopurinol 300 mg Oral tab 1 tab three times a week [Active]; trelegy 100 mcg [Active]; - PMHx: 15:16 Gout; COPD; Atrial Fib; Hypertension; tw2 - PSHx: 15:16 Cholecystectomy; Tonsillectomy; Tubal ligation; "open heart surgery to repair hole in tw2 the septum"; repair atrial septal defect; - Immunization history:: Adult Immunizations. - Social history:: Smoking status: . - Ebola Screening: : Patient denies travel to an Ebola-affected area in the 21 days before illness onset. ROS: 16:20 Constitutional: Negative for body aches, chills, fever, poor PO intake. cp 16:20 Eyes: Negative for injury, pain, redness, and discharge. cp 16:20 Neck: Negative for pain with movement, pain at rest, stiffness, tenderness. 16:20 Cardiovascular: Positive for chest pain, Negative for edema, palpitations. 16:20 Respiratory: Negative for cough, shortness of breath, wheezing. 16:20 Abdomen/GI: Negative for abdominal pain, nausea, vomiting, and diarrhea, black/tarry stool, rectal bleeding. 16:20 Back: Negative for pain at rest, pain with movement, radiated pain. 16:20 : Negative for urinary symptoms. 16:20 Skin: Negative for cellulitis, rash. 16:20 Neuro: Positive for dizziness, near syncope, Negative for altered mental status, headache, syncope, weakness. 16:20 All other systems are negative. Exam: 16:25 ECG was reviewed by the Attending Physician. cp 16:27 Constitutional: The patient appears in no acute distress, alert, awake, comfortable, cp non-diaphoretic, non-toxic, well developed, well nourished. 16:27 Head/Face: Normocephalic, atraumatic. Eyes: Pupils equal round and reactive to light, cp extra-ocular motions intact. Lids and lashes normal. Conjunctiva and sclera are non-icteric and not injected. Cornea within normal limits. Periorbital areas with no swelling, redness, or edema. ENT: Nares patent. No nasal discharge, no septal abnormalities noted. Tympanic membranes are normal and external auditory canals are clear. Oropharynx with no redness, swelling, or masses, exudates, or evidence of obstruction, uvula midline. Mucous membranes moist. Neck: Trachea midline, no thyromegaly or masses palpated, and no cervical lymphadenopathy. Supple, full range of motion without nuchal rigidity, or vertebral point tenderness. No Meningismus. Chest/axilla: Normal chest wall appearance and motion. Nontender with no deformity. No lesions are appreciated. 16:27 Cardiovascular: Rate: normal, Rhythm: irregularly irregular, Edema: is not appreciated, JVD: is not appreciated. 16:27 Respiratory: the patient does not display signs of respiratory distress, Respirations: normal, no use of accessory muscles, no retractions, no splinting, no tachypnea, labored breathing, is not present, Breath sounds: are clear throughout, no decreased breath sounds, no stridor, no wheezing. 16:27 Abdomen/GI: Inspection: abdomen appears normal, Bowel sounds: active, all quadrants, Palpation: abdomen is soft and non-tender, in all quadrants, rebound tenderness, is not appreciated, voluntary guarding, is not appreciated, involuntary guarding, is not appreciated. 16:27 Back: pain, is absent, ROM is normal. 16:27 Skin: cellulitis, is not appreciated, no rash present. 16:27 Neuro: Orientation: to person, place \\T\\ time. Mentation: is normal, Cerebellar function: is grossly normal, Motor: moves all fours, strength is normal, Sensation: is normal. 21:20 ECG was reviewed by the Attending Physician. cp Vital Signs: 15:12 BP 124 / 103; Pulse 68; Resp 17; Temp 97.3(TE); Pulse Ox 97% on R/A; Weight 52.62 kg tw2 (R); Height 5 ft. 3 in. (160.02 cm); Pain 0/10; 15:20 BP 132 / 94; Pulse 72; tw2 16:27 Pulse Ox 97% on R/A; cp 17:00 BP 133 / 94 Supine; Pulse 106; Resp 20; Pulse Ox 96% ; aj1 17:02 BP 142 / 93 Sitting; Pulse 109; aj1 17:05 BP 136 / 91 Standing; Pulse 108; aj1 17:47 BP 129 / 100; Pulse 102; Resp 20; Pulse Ox 94% on R/A; aj1 18:23 BP 144 / 96; Pulse 95; Resp 20; Pulse Ox 95% on R/A; aj1 19:20 BP 130 / 90; Pulse 94; Resp 20; Pulse Ox 95% on R/A; aj1 20:20 BP 131 / 81; Pulse 101; Resp 22; Pulse Ox 94% on R/A; aj1 15:12 Body Mass Index 20.55 (52.62 kg, 160.02 cm) tw2 15:20 after pt sat in triage chair for a few minutes tw2 MDM: 15:30 Patient medically screened. cp 18:30 Data reviewed: vital signs, nurses notes, lab test result(s), EKG, radiologic studies, cp plain films, I have discussed the patient's presentation/case with the attending Emergency Department Physician;. 18:30 The patient was given aspirin in the Emergency Department. Test interpretation: by ED cp physician or midlevel provider: ECG, plain radiologic studies. Physician consultation: Darrius Jimenes MD was contacted at 18:20, regarding consult, patient's condition, wants Eliquis continued as prescribed for anticoagulation therapy. 18:44 Physician consultation: Fernanda Chin MD was called at 18:45, left message on voicemail. 19:19 Physician consultation: Seng Chin MD was contacted at 19:20, regarding admission, to the ICU, patient's condition, would like further tests performed, head CT. 20:25 Physician consultation: Fernanda Chin MD was contacted at 20:25, regarding admission, to the ICU. 21:25 Physician consultation: Darrius Jimenes MD regarding patient's condition, EKG changes of ST depression in leads V3 thru V6. 09/20 16:13 Order name: Basic Metabolic Panel; Complete Time: 18:14 09/20 18:14 Interpretation: Normal except: NA 134; GLUC 115; GFR 85. 09/20 16:13 Order name: CBC with Diff; Complete Time: 17:41 09/20 17:41 Interpretation: Normal except: INGE% 75.4; LYM% 12.3. 09/20 16:13 Order name: LFT's; Complete Time: 18:14 09/20 16:13 Order name: Magnesium; Complete Time: 18:14 09/20 16:13 Order name: NT PRO-BNP; Complete Time: 18:14 09/20 16:13 Order name: PT-INR; Complete Time: 17:41 09/20 17:41 Interpretation: Abnormal: PT 15.2. 09/20 16:13 Order name: Troponin (emerg Dept Use Only); Complete Time: 18:14 09/20 18:14 Interpretation: Abnormal: TROPED 8.71. 09/20 16:13 Order name: XRAY Chest (1 view); Complete Time: 17:41 09/20 17:41 Interpretation: Report review. 09/20 17:24 Order name: Urine Dipstick--Ancillary (enter results); Complete Time: 21:16 kj1 09/20 17:25 Order name: Urine Microscopic Only; Complete Time: 18:34 em1 09/20 22:46 Order name: Troponin I; Complete Time: 23:00 EDMS 09/20 23:01 Interpretation: TROP 7.00; Reviewed. 09/21 02:37 Order name: Troponin I; Complete Time: 11:53 EDMS 09/21 05:20 Order name: CBC with Automated Diff; Complete Time: 11:53 EDMS 09/21 05:39 Order name: Basic Metabolic Panel; Complete Time: 11:53 EDMS 09/20 16:13 Order name: EKG; Complete Time: 16:14 cp 09/20 16:13 Order name: Cardiac monitoring; Complete Time: 17:20 cp 09/20 16:13 Order name: EKG - Nurse/Tech; Complete Time: 17:04 cp 09/20 16:13 Order name: IV Saline Lock; Complete Time: 17:20 cp 09/20 16:13 Order name: Labs collected and sent; Complete Time: 17:20 cp 09/20 16:13 Order name: O2 Per Protocol; Complete Time: 17:20 cp 09/20 16:13 Order name: O2 Sat Monitoring; Complete Time: 17:20 cp 09/20 16:13 Order name: Orthostatics; Complete Time: 17:04 cp 09/20 18:35 Order name: Misc. Order: bed rest; Complete Time: 19:21 cp 09/20 19:19 Order name: CT Head Brain wo Cont; Complete Time: 20:23 cp EC:25 Rate is 79 beats/min. Rhythm is irregularly irregular. QRS interval is prolonged at 130 cp msec. QT interval is normal. T waves are Inverted in leads II, aVF. Clinical impression: Atrial Fibrillation. Interpreted by me. Reviewed by me. 21:20 Rate is 93 beats/min. Rhythm is irregularly irregular. QRS interval is prolonged at 136 cp msec. QT interval is normal. T waves are Inverted in leads II, V2, V3, V4, V5, V6. ST Segment is depressed in leads V3, V4, V5, V6. Administered Medications: 17:30 Drug: Aspirin Chewable Tablet 324 mg Route: PO; aj1 19:00 Follow up: Response: No adverse reaction aj1 18:18 Drug: Metoprolol 25 mg {Note: HR 103 BP 128/100.} Route: PO; aj1 19:00 Follow up: Response: No adverse reaction aj1 19:03 Not Given (Patient took Eliquis from her own supply): Eliquis 2.5 mg PO once aj1 21:42 Drug: morphine 2 mg Route: IVP; Site: right antecubital; aj1 22:00 Follow up: Response: No adverse reaction; Pain is decreased aj1 Disposition: 09/22 11:15 Co-signature as Attending Physician, Rogelio Naranjo MD I agree with the assessment and dc plan of care. Disposition: 09/20/18 20:37 Hospitalization ordered by Fernanda Chin for Inpatient Admission. Preliminary diagnosis are Non-ST elevation (NSTEMI) myocardial infarction, Near-syncope. - Bed requested for Intensive Care Unit. - Status is Inpatient Admission. ss - Condition is Stable. - Problem is new. - Symptoms have improved. UTI on Admission? No Signatures: Dispatcher [employer] EDMS Yusra Reddy RN RN aj1 Nanette Arzola RN RN ss Erasmo Carrasco PA PA cp Wise, Tara, RN RN tw2 Rogelio Naranjo MD MD wa Aguilar, Jose, RN RN ja1 Mary Roper Corrections: (The following items were deleted from the chart) 09/20 20:49 20:37 Hospitalization Ordered by A Giuseppe SOMMERS for Inpatient Admission. Preliminary ja1 diagnosis is Non-ST elevation (NSTEMI) myocardial infarction; Near-syncope. Bed requested for Intensive Care Unit. Status is Inpatient Admission. Condition is Stable. Problem is new. Symptoms have improved. UTI on Admission? No. cp 09/21 11:12 09/20 20:49 09/20/2018 20:37 Hospitalization Ordered by A Giuseppe SOMMERS for Inpatient eb Admission. Preliminary diagnosis is Non-ST elevation (NSTEMI) myocardial infarction; Near-syncope. Bed requested for [facility] ER HOLD. Status is Inpatient Admission. Condition is Stable. Problem is new. Symptoms have improved. UTI on Admission? No. ja1 09/21 12:00 11:12 09/20/2018 20:37 Hospitalization Ordered by A Giuseppe SOMMERS for Inpatient Admission. ss Preliminary diagnosis is Non-ST elevation (NSTEMI) myocardial infarction; Near-syncope. Bed requested for Intensive Care Unit. Status is Inpatient Admission. Condition is Stable. Problem is new. Symptoms have improved. UTI on Admission? No. eb
--- NOTE | 2018-09-20 20:38 | ER ---
Nurse's Notes [facility] Name: Paulina Juarez Age: 88 yrs Sex: Female : 1930 Arrival Date: 09/20/2018 Time: 15:03 Bed 10 Private MD: Diagnosis: Non-ST elevation (NSTEMI) myocardial infarction;Near-syncope Presentation: 09/20 15:10 Presenting complaint: Patient states: last night before i went to bed i took 5ml of tw2 cough syrup that had Codeine in it, i was fine last last night, then about noon i started having these spells like i was going to pass out. Transition of care: patient was not received from another setting of care. Onset of symptoms was September 20, 2018. Risk Assessment: Do you want to hurt yourself or someone else? Patient reports no desire to harm self or others. Initial Sepsis Screen: Does the patient meet any 2 criteria? No. Patient's initial sepsis screen is negative. Does the patient have a suspected source of infection? No. Patient's initial sepsis screen is negative. Care prior to arrival: None. 15:10 Method Of Arrival: Ambulatory tw2 15:10 Acuity: AGUSTINA 3 tw2 15:13 Note VAN NEGATIVE. tw2 Triage Assessment: 15:13 General: Appears in no apparent distress. slender, well groomed, Behavior is calm, tw2 cooperative, appropriate for age. Pain: Denies pain. Historical: - Allergies: 15:16 Latex, Natural Rubber; tw2 - Home Meds: 15:16 albuterol sulfate 2.5 mg/0.5 mL Inhl nebu 0.5 mL every 6 hours [Active]; Ventolin HFA tw2 90 mcg/actuation Nebulizer HFAA 2 puffs every 4-6 hours [Active]; Eliquis 2.5 mg oral tab 1 tab 2 times per day [Active]; metoprolol succinate 50 mg oral Tb24 1 tab once daily [Active]; theophylline 200 mg Oral Tb12 1 tab every 12 hours [Active]; allopurinol 300 mg Oral tab 1 tab three times a week [Active]; trelegy 100 mcg [Active]; - PMHx: 15:16 Gout; COPD; Atrial Fib; Hypertension; tw2 - PSHx: 15:16 Cholecystectomy; Tonsillectomy; Tubal ligation; "open heart surgery to repair hole in tw2 the septum"; repair atrial septal defect; - Immunization history:: Adult Immunizations. - Social history:: Smoking status: . - Ebola Screening: : Patient denies travel to an Ebola-affected area in the 21 days before illness onset. Screenin:31 Abuse screen: Denies threats or abuse. Nutritional screening: No deficits noted. tw2 Tuberculosis screening: No symptoms or risk factors identified. Fall Risk Secondary diagnosis (15 points) impaired mobility. Assessment: 15:30 General: Appears in no apparent distress. comfortable, Behavior is calm, cooperative, aj1 appropriate for age. Pain: Denies pain. Neuro: Level of Consciousness is awake, alert, obeys commands, Oriented to person, place, time, situation, Compound Mixer are equal bilaterally Moves all extremities. Full function Speech is normal, Reports episodes of dizziness, generalized weakness and near syncope, that are intermittent . Cardiovascular: Heart tones S1 S2 present Patient's skin is warm and dry. Rhythm is irregular. Respiratory: Airway is patent Respiratory effort is even, unlabored, Respiratory pattern is regular, symmetrical. GI: No signs and/or symptoms were reported involving the gastrointestinal system. : No signs and/or symptoms were reported regarding the genitourinary system. EENT: No signs and/or symptoms were reported regarding the EENT system. Derm: No signs and/or symptoms reported regarding the dermatologic system. Skin is pink, warm \\T\\ dry. normal. Musculoskeletal: No signs and/or symptoms reported regarding the musculoskeletal system. Circulation, motion, and sensation intact. 16:35 Reassessment: Patient appears in no apparent distress at this time. No changes from aj1 previously documented assessment. Patient and/or family updated on plan of care and expected duration. Pain level reassessed. Patient is alert, oriented x 3, equal unlabored respirations, skin warm/dry/pink. 16:45 Reassessment: Patient states that she does not want to take the aspirin until we double aj1 check with provider that it is okay for her to take, because her physician told her that she should not take aspirin. Notified Chantale MURRAY who states that patient should take aspirin at this time. Patient is agreeable to this. 17:47 Reassessment: Patient appears in no apparent distress at this time. No changes from aj1 previously documented assessment. Patient and/or family updated on plan of care and expected duration. Pain level reassessed. Patient is alert, oriented x 3, equal unlabored respirations, skin warm/dry/pink. 18:22 Reassessment: Patient appears in no apparent distress at this time. No changes from aj1 previously documented assessment. Patient and/or family updated on plan of care and expected duration. Pain level reassessed. Patient is alert, oriented x 3, equal unlabored respirations, skin warm/dry/pink. Patient reports that she is feeling good at this time. States that she has not had any episodes of dizziness, weakness, near syncope since her arrival to the ER. Cardiovascular: Denies chest pain, palpitations, shortness of breath, Patient's skin is warm and dry. Rhythm is atrial fibrillation. 19:10 Reassessment: Patient is to be admitted to ICU, admission orders pending PA talking to [facility] admitting physician at this time. 19:20 Reassessment: Patient and/or family updated on plan of care and expected duration. Pain aj1 level reassessed. General: Appears in no apparent distress. comfortable, Behavior is calm, cooperative, appropriate for age. Neuro: Level of Consciousness is awake, alert, obeys commands. Cardiovascular: Denies chest pain, palpitations, shortness of breath, Patient's skin is warm and dry. Rhythm is atrial fibrillation. Respiratory: Airway is patent Respiratory effort is even, unlabored, Respiratory pattern is regular, symmetrical, Breath sounds are clear bilaterally. Derm: No signs and/or symptoms reported regarding the dermatologic system. Skin is pink, warm \\T\\ dry. normal. Musculoskeletal: No signs and/or symptoms reported regarding the musculoskeletal system. Circulation, motion, and sensation intact. 19:30 Reassessment: Admission orders pending CT head results at this time, per TREVOR Kim. aj1 20:00 Reassessment: Dr. Jimenes at bedside. aj1 20:20 Reassessment: Patient appears in no apparent distress at this time. No changes from aj1 previously documented assessment. Patient and/or family updated on plan of care and expected duration. Pain level reassessed. Patient is alert, oriented x 3, equal unlabored respirations, skin warm/dry/pink. Cardiovascular: Rhythm is atrial fibrillation. 20:33 Reassessment: Notified PA that CT results are back, awaiting admission orders when aj1 provider speaks with admitting physician at this time. 20:45 Reassessment: Admission orders are in at this time, patient moved to bed 10 and placed aj1 in ER hold . Verbal report given to GRICEL Cisneros who will start the patient's charting in [facility] as an ER hold. Vital Signs: 15:12 BP 124 / 103; Pulse 68; Resp 17; Temp 97.3(TE); Pulse Ox 97% on R/A; Weight 52.62 kg tw2 (R); Height 5 ft. 3 in. (160.02 cm); Pain 0/10; 15:20 BP 132 / 94; Pulse 72; tw2 16:27 Pulse Ox 97% on R/A; cp 17:00 BP 133 / 94 Supine; Pulse 106; Resp 20; Pulse Ox 96% ; aj1 17:02 BP 142 / 93 Sitting; Pulse 109; aj1 17:05 BP 136 / 91 Standing; Pulse 108; aj1 17:47 BP 129 / 100; Pulse 102; Resp 20; Pulse Ox 94% on R/A; aj1 18:23 BP 144 / 96; Pulse 95; Resp 20; Pulse Ox 95% on R/A; aj1 19:20 BP 130 / 90; Pulse 94; Resp 20; Pulse Ox 95% on R/A; aj1 20:20 BP 131 / 81; Pulse 101; Resp 22; Pulse Ox 94% on R/A; aj1 15:12 Body Mass Index 20.55 (52.62 kg, 160.02 cm) tw2 15:20 after pt sat in triage chair for a few minutes tw2 ED Course: 15:03 Patient arrived in ED. tw3 15:12 Triage completed. tw2 15:13 Arm band placed on. tw2 15:30 Erasmo Carrasco PA is PHCP. cp 15:30 Rogelio Naranjo MD is Attending Physician. cp 15:30 Patient has correct armband on for positive identification. aj1 15:30 No provider procedures requiring assistance completed. aj1 15:41 Yusra Reddy, GRICEL is Primary Nurse. aj1 16:30 EKG done, by senior electronics technician. reviewed by Erasmo MURRAY. sm3 16:51 X-ray completed. Portable x-ray completed in exam room. Patient tolerated procedure ml well. 16:52 XRAY Chest (1 view) In Process Unspecified. EDMS 17:20 Initial lab(s) drawn, by me, sent to lab. Inserted saline lock: 22 gauge in right aj1 antecubital area, using aseptic technique. Blood collected. 19:[address] 2 19:30 CT completed. Patient tolerated procedure well. Patient moved back from CT. tx 19:30 CT Head Brain wo Cont In Process Unspecified. EDMS 20:36 Fernanda Chin MD is Hospitalizing Provider. cp 20:45 Patient admitted, IV remains in place. aj1 Administered Medications: 17:30 Drug: Aspirin Chewable Tablet 324 mg Route: PO; aj1 19:00 Follow up: Response: No adverse reaction aj1 18:18 Drug: Metoprolol 25 mg {Note: HR 103 BP 128/100.} Route: PO; aj1 19:00 Follow up: Response: No adverse reaction aj1 19:03 Not Given (Patient took Eliquis from her own supply): Eliquis 2.5 mg PO once aj1 21:42 Drug: morphine 2 mg Route: IVP; Site: right antecubital; aj1 22:00 Follow up: Response: No adverse reaction; Pain is decreased aj1 Outcome: 20:37 Decision to Hospitalize by Provider. cp 20:45 Admitted to ICU Other as ER hold, see [facility] for further charting aj1 20:45 critical 20:45 Discharge instructions given to patient, family, Instructed on the need for admit, Demonstrated understanding of instructions. 09/21 12:00 Patient left the ED. ss Signatures: Dispatcher [employer] EDMS Yusra Reddy RN RN aj1 Georgia Burns Shelby, RN RN ss Erasmo Carrasco PA PA cp Wise, Tara, RN RN tw2 John Grey, Vidhya tw3 Carmela Harding [facility] Pat Vences 3
[2018-09-20] MEDS ORDERED: ACETAMINOPHEN 500 MG TAB PO PRN (21:13)
[2018-09-20] MEDS ORDERED: ONDANSETRON 4 MG/2 ML VIAL IV PRN (21:13)
[2018-09-20] MEDS ORDERED: MORPHINE 2 MG/ML SYR ONE (21:52)
--- NOTE | 2018-09-21 01:28 | CON ---
History Of Present Illness: Ms. Juarez is an 88. She had some kind of spells today and came to the ER quickly and found to have an abnormal troponin and N-terminal proBNP. To me, she did not say, she h ad chest pain. She has a hard time describing the spells. The night before, she had some pain in he r jaws and throat, lasted several hours, and went away. That was not the actual reason, she came to the hospital. She was driving with her . She said each spell lasted in 4 minutes. She felt uncomfortable, lightheaded, dizzy and short of breath; and she said she had 15, 4-minute spells over a period of a couple of hours. She has never had myocardial infarction or stroke. She has chronic a trial fibrillation. She had an atrial septal defect and had an open repair that was in the early to mid 90s. She has been in chronic atrial fibrillation since then. She has had numerous stress tests looking for problems with coronary arteries, but she has never had CAD at least before this. She has had a chest x-ray that shows sternal wires and other abnormalities, but does not seem to show any ac [place] problem nor any changes. A CT of the brain is normal. Telemetry shows atrial fibrillation and h er EKG shows LVH and nonspecific ST changes. Laboratory Data: Her creatinine is 0.66. Rapid troponin 8.71. Serial troponins not been drawn. Medications: Her outpatient medications are; Eliquis, she takes metoprolol, allopurinol and a lot of inhalers. Past Medical History: She has underlying COPD, hypertension, and gout. She has been in atrial fibri llation for more than 25 years. Physical Examination: General: She is alert, oriented, pleasant. Vital Signs: Heart rate in the 80s, irregular. Blood pressure 112/70. Heart: Irregularly irregular, otherwise it is a normal exam. Lungs: Clear. Abdomen: Soft. Extremities: No edema, cyanosis, or clubbing. Diagnostic Data: Electrocardiogram shows no significant change from old EKGs, atrial fibrillation, R SR prime in V1 voltage for LVH and marked ST abnormality either due to LVH or other reasons, perhaps ischemia. There is no ST elevation. Impression: The patient had a myocardial infarction sometime. I would be surprised with her coming in right after these symptoms that it was related to what she had. Perhaps, she had an TN the night before, and did not come to the ER and came to the ER because of runs of ventricular tachycardia. I do not know how it is going to work out, but I think tomorrow we should do an echocardiogram, re-eval uate cardiac enzymes. If we can figure out exactly, what happened, very likely this will lead to us doing a cardiac cath to make a definitive diagnosis. If so, it would most likely be done not tomorro w, but after we have learned a little bit more. CHRISTY Voice ID: [id number] Report ID: [id number]
[2018-09-21] MEDS: MORPHINE 2 MG/ML SYR IV PRN ×2 (04:19→19:56)
[2018-09-21] MEDS ORDERED: MORPHINE 4 MG/ML SYR ONE (04:30)
[2018-09-21 05:19] LABS: Absolute Lymphocytes (CBC) 1.7 K/uL (0.7-4.9); Absolute Monocytes 1.1 K/uL (0.1-1.3); Absolute Neutrophil 4.6 K/uL (1.8-8.0); Basophils % 0.8 % (0-1.3); Eosinophils % 2.6 % (0-4.4); Hematocrit 40.4 % (36.0-45.0); Lymphocytes % 21.9 % (15.3-44.8); MPV 9.2 fL (7.6-11.3); Monocytes % 14.8 % (3.3-12.3)
[2018-09-21 05:39] LABS: BUN Blood Urea Nitrogen 15 mg/dL (7-18); Bicarbonate 28 mmol/L (21-32); Glucose Level 95 mg/dL (74-106); Potassium 3.9 mmol/L (3.5-5.1); Sodium Level 137 mmol/L (136-145)
[2018-09-21] MEDS: METOPROLOL XL 50 MG TAB PO SCH ×2 (06:00→17:02)
--- NOTE | 2018-09-21 06:01 | EKG ---
Test Date: 2018-09-20 Test Time: 18:10:08 Human Resources Operations Specialist: DUSTIN MEASUREMENT RESULTS: Intervals: Rate: 89 NE: QRSD: 138 QT: 398 QTc: 484 [place]: P: NE: QRS: 4 T: 244 INTERPRETIVE STATEMENTS: Atrial fibrillation Right bundle branch block Voltage criteria for left ventricular hypertrophy Marked T wave abnormality, consider lateral ischemia Abnormal ECG Compared to ECG 09/20/2018 16:17:42 Myocardial infarct finding no longer present T-wave abnormality still present Electronically Signed On 09-21-18 06:01:42 CDT by Darrius Jimenes
[2018-09-21] MEDS ORDERED: METOPROLOL XL 50 MG TAB PO ONE (06:20)
[2018-09-21] MEDS: ENOXAPARIN 60 MG/0.6 ML SQ SCH ×2 (06:30→11:44)
[2018-09-21] MEDS ORDERED: ENOXAPARIN 60 MG/0.6 ML SQ ONE (06:53)
[2018-09-21] MEDS ORDERED: APIXABAN 2.5 MG TABLET PO SCH (09:00)
[2018-09-21] MEDS ORDERED: ASPIRIN EC 81 MG TAB PO SCH (09:00)
[2018-09-21] MEDS ORDERED: ASPIRIN 81 MG CHEWABLE TABLET ONE (09:58)
[2018-09-21] MEDS ORDERED: ONDANSETRON 4 MG/2 ML VIAL ONE (11:25)
--- NOTE | 2018-09-21 11:29 | PN ---
Ms. Juarez has occasional spells of chest pain. They are atypical. Her troponins are trending down. I still suspect that she actually had her NC a day or 2 before coming in. Her spells may be pericard itis or something like that. In any event, I have recommended a cardiac cath tomorrow, so we will st op Alfredito and Dangelo, and get ready to do it tomorrow morning at about 07:30 in the morning. The p atient seems to understand the procedure, potential benefits, indications, risks, and agrees to proce ed. YUDITH/RENY Voice ID: [id number] Report ID: [id number]
[2018-09-21] MEDS ORDERED: ALPRAZOLAM 0.25 MG TABLET PO ONE (21:05)
--- NOTE | 2018-09-22 05:34 | HP ---
Date of Admission: 09/21/2018 Chief Complaint: Chest pain, dizziness. History Of Present Illness: An 88-year-old female patient who came in to see me day before yesterday with cough with clear mucus. The patient and her both had similar symptoms. No fever. No colored mucus. There was no evidence of any bacterial infection, so both of them were sent home with some prescription cough medication. Yesterday morning since she woke up, she was complaining of feeling dizzy and her called office and was wondering if this was because of the cough medicine which was containing codeine and then subsequently he notified us that she was not acting right. At that time, she was advised to come to the emergency room. In the emergency room, she reported that she had couple of episodes of chest tightness type of feeling and felt like that she might faint and heart racing feeling with that. After her evaluation in the ER, she was diagnosed as having subacute myocardial infarction and Dr. Jimenes came to see her in the ER and the patient was admitted to ICU. I saw her this morning. She was still in the emergency room as there were no ICU beds available. She was asymptomatic when I saw her this morning. Allergies: TO LATEX. Medications: List reviewed. Review of Systems: Cardiovascular: As mentioned above. Respiratory: As mentioned above. All other systems reviewed and negative. Past Medical History: Hypertension, chronic atrial fibrillation, chronic anticoagulation therapy, hyperlipidemia, gout, diverticulosis, osteoarthritis at multiple sites, hypothyroidism, osteoporosis. Past Surgical History: Carpal tunnel surgery, cataract surgery, cholecystectomy , repair of atrial septal defect. Family History: Significant for heart disease. Social History: Prior history of smoking, not at present time. Use of alcohol negative. Physical Examination: Vital Signs: Height 5 feet 3 inches, weight 116 pounds, temperature 97.3F, pulse 68, blood pressure 124/103, respiratory rate 17, oxygen saturation 97%. General: Awake, alert, oriented, not in distress. HEENT: Head atraumatic, normocephalic. Conjunctivae nonerythematous. Sclerae white. Mouth, no thrush or edema noted. Ears/Nose, no mass, lesion, discharge noted. Neck: Supple. No JVD, lymph nodes, bruit, thyromegaly noted. Lungs: Bilateral good equal air entry. Clear to auscultation. No rhonchi. No rales. Heart: Normal heart sounds, no murmur or gallop. Abdomen: Soft, bowel sounds normal. No guarding, rigidity, tenderness, mass, hepatosplenomegaly, distention, or bruit noted. Extremities: No leg edema. No calf tenderness. Skin: No rash, ulcer, cellulitis. Lymphatics: No lymph node enlargement in neck, supraclavicular, infraclavicular region. Neuro: No focal neurological deficit. Chest: Unremarkable. External Genitalia: Deferred. Rectal: Deferred. Labs: Yesterday white count 8.4, hemoglobin 14.7, platelets 180. This morning , white count 7.7, hemoglobin 13.3, platelets 165. Sodium yesterday 134, potassium 3.8, chloride 98, bicarb 29, BUN 14, creatinine 0.66, glucose 115. Liver function tests unremarkable except SGOT 78. Initial troponins 8.71, second set was 7.0, third set 7.73. This morning sodium 137, potassium 3.9 chloride 103, bicarb 28, BUN 15, creatinine 0.54. INR 1.30. Urinalysis negative. Chest x-ray, no acute cardiopulmonary changes. EKG: Atrial fibrillation. CAT scan of the head: No acute intracranial changes. Impression: 1. NSTEMI. 2. Chronic atrial fibrillation. 3. Chronic anticoagulation therapy. 4. Hypertension. 5. Hyperlipidemia. 6. Diverticulosis. 7. Gout. 8. Osteoarthritis, multiple sites. 9. Hypothyroidism. 10. Osteoporosis. Plan: We will admit the patient to hospital for further evaluation and management of this problem. Patient is appropriate for inpatient and is expected to spend 2 midnights in hospital. Continue home medications per order. Wildlife Manager has evaluated her and he is planning to do cardiac cath to be done on Tuesday. The patient understands and agrees with the treatment plan, and she will be admitted to ICU as soon as bed is available. I will see her tomorrow for followup. ANTONIO/RENY Voice ID: [id number] MTDD
[2018-09-22] MEDS: METOPROLOL XL 50 MG TAB PO SCH ×2 (05:59→17:24)
[2018-09-22] MEDS: ENOXAPARIN 60 MG/0.6 ML SQ SCH (06:00)
[2018-09-22] MEDS ORDERED: NA CHLORIDE 0.9% 1,000 ML ONE (06:09)
--- NOTE | 2018-09-22 06:17 | EKG ---
Test Date: 2018-09-21 Test Time: 06:43:41 Spout Positioner: HELEN MEASUREMENT RESULTS: Intervals: Rate: 91 ND: QRSD: 124 QT: 390 QTc: 479 [place]: P: ND: QRS: 66 T: 265 INTERPRETIVE STATEMENTS: Atrial fibrillation Incomplete right bundle branch block Left ventricular hypertrophy with QRS widening ST abnormality, possible lateral subendocardial injury Abnormal ECG Compared to ECG 09/21/2018 04:18:52 no significant change from previous ECG Electronically Signed On 09-22-18 06:17:13 CDT by Darrius Jimenes
--- NOTE | 2018-09-22 06:18 | EKG ---
Test Date: 2018-09-21 Test Time: 04:18:52 Mica Miner: GINO MEASUREMENT RESULTS: Intervals: Rate: 84 NM: QRSD: 128 QT: 414 QTc: 489 [place]: P: NM: QRS: 63 T: -88 INTERPRETIVE STATEMENTS: Atrial fibrillation Incomplete right bundle branch block Left ventricular hypertrophy with QRS widening Marked T wave abnormality, consider anterolateral ischemia Abnormal ECG Compared to ECG 09/20/2018 21:14:59 Right bundle-branch block no longer present Electronically Signed On 09-22-18 06:17:36 CDT by Darrius Jimenes
[2018-09-22] MEDS ORDERED: HEPA 1000U/500MLS 2,000 UNIT/1,000 ML BAG IV ONE (06:25)
[2018-09-22] MEDS ORDERED: ATROPINE SULF 1 MG/10 ML SYR IV ONE (06:26)
[2018-09-22] MEDS ORDERED: NA CHLORIDE 0.9% 0 ML ONE (06:26)
[2018-09-22] MEDS ORDERED: NICARDIPINE HCL 25 MG/10 ML IV ONE (06:26)
[2018-09-22] MEDS ORDERED: HEPARIN 5000 UNIT/ML 1 ML VIAL ONE (06:26)
[2018-09-22] MEDS ORDERED: LIDOCAINE 1% MPF 30 ML VIAL ONE (06:27)
[2018-09-22] MEDS ORDERED: MIDAZOLAM HCL 2 MG/2 ML INJ ONE (07:14)
[2018-09-22] MEDS ORDERED: FENTANYL CITR 100 MCG/2 ML ONE (07:15)
[2018-09-22] MEDS ORDERED: FLUMAZENIL 0.1 MG/ML (5 mL VIAL) IV ONE (07:25)
[2018-09-22] MEDS: APIXABAN 2.5 MG TABLET PO SCH ×2 (08:00→17:24)
--- NOTE | 2018-09-22 09:52 | OP ---
Surgeon: Darrius Jimenes MD Procedure: Left heart catheterization with coronary left ventricular angiography. Findings: Mrs. Juarez has normal coronary arteries. Her left ventricular ejection fraction globally i s normal, but there is segmental wall-motion abnormality in the high lateral wall, perhaps some in th e posterolateral wall as well. We did an DAYANA view of the left ventriculogram to see all of the press ures were normal, and the final diagnosis is that she had a myocardial infarction due to the so-squires d broken heart syndrome or Takotsubo syndrome. Procedure In Detail: The patient had evidence of a myocardial infarction without any discernible EKG changes mainly because her baseline EKG is so abnormal. She was brought to the cardiac landscape and yardwork laborer in a fasting state, sedated with Versed and fentanyl. She was over-sedated with 2 mg of Versed, so we r eversed the Versed with Romazicon 0.5 mg. She was prepared and draped in usual sterile fashion. She had an inadequate radial pulse for attempting a radial catheterization, so we used the right femoral . The tissues around the right femoral artery were anesthetized with 1% lidocaine. The artery was e ntered using an 18-gauge needle, cannulated with a short J-wire, and then a 4-Peruvian sheath was place d. We used a JL4 to angiogram the left, 3DRC to angiogram the right, angled pigtail to angiogram the left ventricle. At the end of the procedure, catheters were withdrawn over the wire. A sheath shot was done, adequate anatomy was seen, and we closed the arteriotomy using an Angio-Seal device. Complications: None. YUDITH/RENY Voice ID: [id number] Report ID: [id number]
[2018-09-22] MEDS: MORPHINE 2 MG/ML SYR IV PRN (10:16)
--- NOTE | 2018-09-22 17:44 | PN ---
Date of Progress Note: 09/22/2018 Subjective: The patient was seen this morning for followup. She was seen in cardiac cardiac cath lab manager after s he had her cardiac cath done and the cardiac cath showed normal coronary arteries. Details were disc ussed with saloonkeeper, Dr. Jimenes. Objective: HEENT: Unremarkable. Lungs: Clear to auscultation. Heart: Sounds normal. Abdomen: Soft. Bowel sounds normal. No guarding, rigidity, tenderness, or distention. Extremities: No leg edema. Laboratory Data: Lipid profile normal. Impression: 1.Cqo-IG-rzmqvcmrp myocardial infarction. 2.Chronic atrial fibrillation. 3.Chronic anticoagulation therapy. Plan: Dr. Jimenes has recommended p.r.n. use of nitroglycerin. Meanwhile, the patient will be monito red after this cardiac cath and starting this evening, we will probably allow her to ambulate and hop efully our plan is to discharge her to go home by tomorrow if she is stable. Details were discussed with the patient's . ANTONIO/MODL Voice ID: [id number] Report ID: [id number]
[2018-09-23 05:59] VITALS: O2SAT 95
[2018-09-23 06:00] VITALS: BMI 19.1
[2018-09-23] MEDS: METOPROLOL XL 50 MG TAB PO SCH (06:20)
[2018-09-23] MEDS: APIXABAN 2.5 MG TABLET PO SCH (06:21)
[2018-09-23 10:28] VITALS: BP 110/75; TEMP 97.6
--- NOTE | 2018-09-23 17:57 | DS ---
Date of Discharge: 09/23/2018 Subjective: The patient was seen this morning for followup. No new complaints or problems reported by the patient. She was sitting in chair. Objective: Vital Signs: Reviewed. HEENT: Unremarkable. Lungs: Clear to auscultation. Heart: Sounds normal. Abdomen: Soft bowel sounds normal. No guarding, rigidity, tenderness, distention. Extremities: No leg edema. Laboratory Data: Labs done during this hospitalization upon admission, white count 8.4, hemoglobin 1 4.7, platelets 180. Sodium upon admission was 134, potassium 3.8, chloride 98, bicarb 29, BUN 14, cr eatinine 0.66, glucose 115. Liver function tests unremarkable except SGOT 78. Initial troponin 8.71 , second troponin 7.0, third troponin 7.73. Lipid profile, triglyceride 83, total cholesterol 146, L DL 79, HDL 50. Hospital Course: An 88-year-old female patient came into emergency room with complaints of chest tank n and dizziness. Please see dictated H and P for more information. After the patient was evaluated in the ER, she was admitted to the hospital. Her cardiac enzymes were elevated. She was admitted to the hospital to intensive care unit with non-STEMI. Dr. Jimenes from Cardiology saw her and the forrest ent's condition remained stable in ICU. Yesterday, she had a cardiac cath done and it showed normal coronaries. From Cardiology point of view, Dr. Jimenes has released her to go home. Medically she is stable for discharge. Denies any chest pain or any shortness of breath type of problem. She was ma de aware of cardiac cath results and was advised to use nitroglycerin sublingual tablet on a p.r.n. b asis, follow instruction from firefighting equipment specialist on how to use this medication, how to store this medicatio n, all those details were discussed with the patient and patient's . They were also advised t o carry the nitroglycerin all the time with her and once the bottle is opened, then they need to repl thaddeus with a new supply after 3 months. The patient is asymptomatic and medically stable for discharge . Final Diagnoses: 1.Nlz-BV-vjasnda elevation myocardial infarction. 2.Chronic atrial fibrillation. 3.Chronic anticoagulation therapy. 4.Hypertension. 5.Hyperlipidemia. 6.Diverticulosis. 7.Gout. 8.Osteoarthritis, multiple sites. 9.Hypothyroidism. 10.Osteoporosis. Discharge Instructions: 1.Follow up with Dr. Chin in 2 weeks, Dr. Jimenes in 3 weeks. 2.Continue all prior home medications. ANTONIO/MODL Voice ID: [id number] Report ID: [id number]
== END 2018-09-23 10:40 | disposition home or self-care (01) | DRG 282 ==
LOC: ER 15:00 → ERHOLD 20:37 → 3RD-ICU 09-21 11:33
PROVIDERS: ADMIT Internal Medicine; ATTEND Internal Medicine
PROC: 4A023N7 Measurement of Cardiac Sampling and Pressure, Left Heart, Percutaneous Approach (ICD-10-PCS; principal; 2018-09-22)
PROC: B211YZZ Fluoroscopy of Multiple Coronary Arteries using Other Contrast (ICD-10-PCS; 2018-09-22)
PROC: B215YZZ Fluoroscopy of Left Heart using Other Contrast (ICD-10-PCS; 2018-09-22)
DX: I21.4 Non-ST elevation (NSTEMI) myocardial infarction (principal); I48.2 Chronic atrial fibrillation; Z79.01 Long term (current) use of anticoagulants; I10 Essential (primary) hypertension; E78.5 Hyperlipidemia, unspecified; K57.90 Diverticulosis of intestine, part unspecified, without perforation or abscess without bleeding; M10.9 Gout, unspecified; M19.90 Unspecified osteoarthritis, unspecified site; E03.9 Hypothyroidism, unspecified; M81.0 Age-related osteoporosis without current pathological fracture; J44.9 Chronic obstructive pulmonary disease, unspecified
CPT/HCPCS: 36415; 70450; 71045; 80048; 80061; 80076; 81003; 81015; 83735; 83880; 84484; 85025; 85610; 93005; 93458; 96374; 99285; C1760; C1893; J0583; J1644; J1650; J2250; J2270; J2405; J3010; J7030

== ENCOUNTER 2019-08-25 16:09 | Emergency (ER) | payer OTHER ==
--- NOTE | 2019-08-25 17:14 | EDPHYS ---
Physician Documentation [facility] Name: Paulina Juarez Age: 89 yrs Sex: Female : 1930 Arrival Date: 08/25/2019 Time: 16:11 Bed 15 Private MD: Fernanda Chin C ED Physician Erasmo Muro HPI: 17:07 This 89 yrs old Female presents to ER via Ambulatory with complaints of Neck la1 Pain. 17:07 The patient or guardian complains of pain, that is acute. The symptoms are located on la1 the left posterior aspect of neck. Onset: The symptoms/episode began/occurred yesterday. Context: The problem was sustained at home. Associated signs and symptoms: The patient has no apparent associated signs or symptoms. Location: left trapezius. Modifying factors: The symptoms are alleviated by ice packs, the symptoms are aggravated by movement. Severity of symptoms: At their worst the symptoms were mild. The patient has experienced a previous episode. no trauma, no neurovascular complaints. Historical: - Allergies: 16:50 Latex, Natural Rubber; ca1 - Home Meds: 16:50 Eliquis 2.5 mg Oral tab 1 tab 2 times per day [Active]; theophylline 200 mg Oral Tb12 1 ca1 tab every 12 hours [Active]; Toprol XL 50 mg Oral Tb24 1.5 tabs once daily [Active]; ProAir RespiClick inhalation inhalation [Active]; trelegy 100 mcg [Active]; - PMHx: 16:51 Asthma; ca1 - PSHx: 16:51 Cholecystectomy; Tonsillectomy; Tubal ligation; "open heart surgery to repair hole in ca1 the septum"; repair atrial septal defect; - Immunization history:: Adult Immunizations up to date, Pneumococcal vaccine is up to date, Flu vaccine is up to date. - Social history:: Smoking status: Patient denies any tobacco usage or history of. ROS: 17:09 Constitutional: Negative for fever, chills, and weight loss, Eyes: Negative for injury, la1 pain, redness, and discharge, ENT: Negative for injury, pain, and discharge. 17:09 Respiratory: Negative for shortness of breath, cough, wheezing, and pleuritic chest pain, Abdomen/GI: Negative for abdominal pain, nausea, vomiting, diarrhea, and constipation, Back: Negative for injury and pain, MS/Extremity: Negative for injury and deformity, Neuro: Negative for headache, weakness, numbness, tingling, and seizure. 17:09 Neck: Positive for pain with movement, pain at rest, of the left trapezius and left posterior aspect of neck. Exam: 17:09 Constitutional: This is a well developed, well nourished patient who is awake, alert, la1 and in no acute distress. Head/Face: Normocephalic, atraumatic. Eyes: Pupils equal round and reactive to light, extra-ocular motions intact. ENT: Mucous membranes moist. Chest/axilla: Normal chest wall appearance and motion. Nontender with no deformity. No lesions are appreciated. Cardiovascular: Regular rate and rhythm with a normal S1 and S2. Respiratory: Lungs have equal breath sounds bilaterally, clear to auscultation and percussion. 17:09 Back: No spinal tenderness. No costovertebral tenderness. Full range of motion. 17:09 Neck: External neck: is normal, C-spine: appears grossly normal, no acute changes, Trachea: is midline with no obvious abnormalities, ROM/movement: pain, that is mild, Meningeal signs: Kernig's sign is negative, Brudzinski's sign is negative, nuchal rigidity, is not appreciated. Vital Signs: 16:43 BP 113 / 89; Pulse 101; Resp 19 S; Temp 98.9(O); Pulse Ox 96% on R/A; Weight 51.71 kg ca1 (R); Height 5 ft. 3 in. (160.02 cm) (R); Pain 10/10; 17:30 BP 135 / 76; Pulse 95; Resp 17 S; Pulse Ox 98% on R/A; ca1 16:43 Body Mass Index 20.19 (51.71 kg, 160.02 cm) ca1 MDM: 16:41 Patient medically screened. la1 17:10 Data reviewed: vital signs, nurses notes, radiologic studies, and as a result, I will la1 discharge patient. Data interpreted: Pulse oximetry: on room air is 96 %. Counseling: I had a detailed discussion with the patient and/or guardian regarding: the historical points, exam findings, and any diagnostic results supporting the discharge/admit diagnosis, radiology results, the need for outpatient follow up, a family practitioner, to return to the emergency department if symptoms worsen or persist or if there are any questions or concerns that arise at home. Special discussion: Based on the history and exam findings, there is no indication for further emergent testing or inpatient evaluation. I discussed with the patient/guardian the need to see the primary care provider for further evaluation of the symptoms. Administered Medications: 17:30 Drug: Robaxin 500 mg Route: PO; ca1 17:37 Follow up: Response: Medication administered at discharge. ca1 Disposition: 08/25/19 17:13 Discharged to Home. Impression: Pain in Left Lateral Neck. - Condition is Stable. - Discharge Instructions: Muscle Strain, Muscle Pain, Adult, Neck Exercises. - Prescriptions for Robaxin 500 mg Oral Tablet - take 1 tablet by ORAL route every 6 hours As needed; 20 tablet. Medrol (Brad) 4 mg Oral Tablets, Dose Pack - take 1 tablet by ORAL route as directed - follow package instructions; 1 packet. - Medication Reconciliation Form, Thank You Letter form. - Follow up: Fernadna Chin MD; When: 2 - 3 days; Reason: Recheck today's complaints, Re-evaluation by your physician. Follow up: Emergency Department; When: As needed. - Problem is new. - Symptoms are unchanged. Addendum: 08/26/2019 18:03 Co-signature as Attending Physician, Erasmo Muro MD I agree with the assessment and [facility] plan of care. Signatures: Erasmo Muro MD MD cha Attema, Lee, MITER SAW OPERATOR-C MITER SAW OPERATOR-Cla1 Rylee Sam RN RN ca1 Corrections: (The following items were deleted from the chart) 17:39 17:13 08/25/2019 17:13 Discharged to Home. Impression: Pain in Left Lateral Neck. ca1 Condition is Stable. Forms are Medication Reconciliation Form, Thank You Letter, Antibiotic Education, Prescription Opioid Use. Follow up: Fernanda Chin; When: 2 - 3 days; Reason: Recheck today's complaints, Re-evaluation by your physician. Follow up: Emergency Department; When: As needed. Problem is new. Symptoms are unchanged. la1
--- NOTE | 2019-08-25 17:14 | ER ---
Nurse's Notes [facility] Name: Paulina Juarez Age: 89 yrs Sex: Female : 1930 Arrival Date: 08/25/2019 Time: 16:11 Bed 15 Private MD: Mauricio Chin C Diagnosis: Pain in Left Lateral Neck Presentation: 16:43 Chief complaint: Patient states: Neck pain started yesterday. Unable to turn neck to ca1 the left. Denies fever. Coronavirus screen: The patient has NOT traveled to [place] in the past 14 days. The patient has NOT had contact with known and/or suspected case of Coronavirus. Ebola Screen: Patient negative for fever greater than or equal to 101.5 degrees Fahrenheit, and additional compatible Ebola Virus Disease symptoms Patient denies exposure to infectious person. Patient denies travel to an Ebola-affected area in the 21 days before illness onset. No symptoms or risks identified at this time. Initial Sepsis Screen: Does the patient meet any 2 criteria? No. Patient's initial sepsis screen is negative. Does the patient have a suspected source of infection? No. Patient's initial sepsis screen is negative. Risk Assessment: Do you want to hurt yourself or someone else? Patient reports no desire to harm self or others. 16:43 Method Of Arrival: Ambulatory ca1 16:43 Acuity: AGUSTINA 3 ca1 16:58 Onset of symptoms was August 25, 2019. ca1 Triage Assessment: 16:51 General: Appears in no apparent distress. uncomfortable, Behavior is calm, cooperative, ca1 appropriate for age. Pain: Complains of pain in neck Pain currently is 10 out of 10 on a pain scale. Pain began 1 day ago. EENT: Throat is clear. Neuro: Level of Consciousness is awake, alert, obeys commands, Oriented to person, place, time, situation, Appropriate for age Manager Secondary are equal bilaterally Moves all extremities. Gait is steady, Speech is normal, Facial symmetry appears normal, Pupils are PERRLA, Intact. Cardiovascular: Heart tones S1 S2 present Capillary refill < 3 seconds Patient's skin is warm and dry. Respiratory: Airway is patent Respiratory effort is even, unlabored, Respiratory pattern is regular, symmetrical, Breath sounds are clear bilaterally. GI: Abdomen is flat, non-distended, Bowel sounds present X 4 quads. Abd is soft and non tender X 4 quads. : No signs and/or symptoms were reported regarding the genitourinary system. Derm: Skin is intact, is healthy with good turgor, Skin is pink, warm \\T\\ dry. Musculoskeletal: Circulation, motion, and sensation intact. Capillary refill < 3 seconds, Range of motion: intact in all extremities. Historical: - Allergies: 16:50 Latex, Natural Rubber; ca1 - Home Meds: 16:50 Eliquis 2.5 mg Oral tab 1 tab 2 times per day [Active]; theophylline 200 mg Oral Tb12 1 ca1 tab every 12 hours [Active]; Toprol XL 50 mg Oral Tb24 1.5 tabs once daily [Active]; ProAir RespiClick inhalation inhalation [Active]; trelegy 100 mcg [Active]; - PMHx: 16:51 Asthma; ca1 - PSHx: 16:51 Cholecystectomy; Tonsillectomy; Tubal ligation; "open heart surgery to repair hole in ca1 the septum"; repair atrial septal defect; - Immunization history:: Adult Immunizations up to date, Pneumococcal vaccine is up to date, Flu vaccine is up to date. - Social history:: Smoking status: Patient denies any tobacco usage or history of. Screenin:55 Abuse screen: Denies threats or abuse. Denies injuries from another. Nutritional ca1 screening: No deficits noted. Tuberculosis screening: No symptoms or risk factors identified. Fall Risk None identified. Assessment: 16:55 Reassessment: SEE TRIAGE ASSESSMENT. ca1 17:30 Reassessment: Patient appears in no apparent distress at this time. Patient is alert, ca1 oriented x 3, equal unlabored respirations, skin warm/dry/pink. Vital Signs: 16:43 BP 113 / 89; Pulse 101; Resp 19 S; Temp 98.9(O); Pulse Ox 96% on R/A; Weight 51.71 kg ca1 (R); Height 5 ft. 3 in. (160.02 cm) (R); Pain 10/10; 17:30 BP 135 / 76; Pulse 95; Resp 17 S; Pulse Ox 98% on R/A; ca1 16:43 Body Mass Index 20.19 (51.71 kg, 160.02 cm) ca1 ED Course: 16:11 Patient arrived in ED. mr 16:11 Mauricio Chin MD is Private Physician. mr 16:41 BraulioKe FNP-C is [facility]. la1 16:41 Erasmo Muro MD is Attending Physician. la1 16:43 Rylee Sam, RN is Primary Nurse. ca1 16:45 Triage completed. ca1 16:51 Arm band placed on right wrist. ca1 16:55 Patient has correct armband on for positive identification. Bed in low position. Call ca1 light in reach. Side rails up X 1. Side rails up X2. Pulse ox on. NIBP on. Warm blanket given. 16:55 No provider procedures requiring assistance completed. ca1 17:12 Mauricio Chin MD is Referral Physician. la1 17:38 Patient did not have IV access during this emergency room visit. ca1 Administered Medications: 17:30 Drug: Robaxin 500 mg Route: PO; ca1 17:37 Follow up: Response: Medication administered at discharge. ca1 Outcome: 17:13 Discharge ordered by MD. la1 17:38 Discharged to home ambulatory, with significant other. ca1 17:38 Condition: stable 17:38 Discharge instructions given to patient, Instructed on discharge instructions, follow up and referral plans. no driving heavy equipment, medication usage, Demonstrated understanding of instructions, follow-up care, medications, Prescriptions given X 2. 17:39 Patient left the ED. ca1 Signatures: [place] Lelia thorne KathleenmauricioKe FNP-C CUSTOM BOOKBINDER-Cla1 Rylee Sam, RN RN ca1
[2019-08-25] MEDS ORDERED: methocarbamoL 500 MG TAB ONE (17:33)
[2019-08-25 17:45] VITALS: TEMP 98.9
[2019-08-25 17:47] VITALS: BP 135/76; O2SAT 98
== END 2019-08-25 17:39 | disposition home or self-care (01) ==
LOC: ER 16:09
DX: M54.2 Cervicalgia (principal); Z91.040 Latex allergy status; J45.909 Unspecified asthma, uncomplicated
CPT/HCPCS: 99283

== ENCOUNTER 2019-12-17 11:23 | Emergency (ER) | payer OTHER ==
[2019-12-17] MEDS ORDERED: ALBUTEROL 2.5 MG/3 ML NEB SOL ONE ×2 (12:01→14:51)
[2019-12-17] MEDS ORDERED: IPRATROPIUM BROM 0.5MG/2.5ML ONE ×2 (12:01→14:52)
[2019-12-17] MEDS ORDERED: METHYLPREDNISOLONE 125 MG INJ ONE (12:18)
[2019-12-17] MEDS ORDERED: CEFTRIAXONE/SWI 1gm 1 GM/10 ML SYR ONE (12:18)
[2019-12-17] MEDS ORDERED: AZITHROMYCIN IV 500 MG in NA CHLORIDE 0.9% 250 ML IVPB ONE (12:30)
[2019-12-17 12:46] LABS: Absolute Lymphocytes (CBC) 1.3 K/uL (0.7-4.9); Basophils % 0.8 % (0-1.3); Hematocrit 44.8 % (36.0-45.0); Lymphocytes % 16.2 % (15.3-44.8); MPV 8.5 fL (7.6-11.3); RBC Red Blood Cell Count 4.71 M/uL (3.86-4.86)
[2019-12-17 12:53] LABS: Protime INR 1.23
[2019-12-17 13:03] LABS: ALT/SGPT 30 U/L (12-78); AST/SGOT 28 U/L (15-37); Albumin 4.3 g/dL (3.4-5.0); Alkaline Phosphatase 72 U/L (45-117); BUN Blood Urea Nitrogen 14 mg/dL (7-18); Bicarbonate 29 mmol/L (21-32); Bilirubin Direct 0.2 mg/dL (0-0.2); Bilirubin Total 0.8 mg/dL (0.2-1.0); CKMB Creatine Kinase MB 1.3 ng/mL (0.3-3.6); Creatine Phosphokinase 52 U/L (26-192); Glucose Level 97 mg/dL (74-106); Lipase 100 U/L (73-393); Magnesium 2.3 mg/dL (1.8-2.4); NT PRO-BNP 4004 pg/mL (<450); Protein, Total 7.5 g/dL (6.4-8.2); Sodium Level 141 mmol/L (136-145); Troponin (Emerg Dept Use Only) < 0.02 ng/mL (0.0-0.045)
--- NOTE | 2019-12-17 13:16 | RAD REPORT ---
EXAM DESCRIPTION: RAD - Chest Single View - 12/17/2019 1:04 pm CLINICAL HISTORY: CONGESTION Chest pain. COMPARISON: Chest Single View dated 09/20/2018; Chest Single View dated 03/02/2018; Chest Single View d ated 03/01/2018; Chest Pa And Lat (2 Views) dated 09/15/2016 FINDINGS: Portable technique limits examination quality. Mild COPD is present with linear atelectasis in both mid lungs. The heart is significantly enlarged i n size. Sternotomy wires present.
[2019-12-17] MEDS ORDERED: Magnesium Sulfate 2gm IVPB 2 G/50 ML BAG IV ONE (14:51)
--- NOTE | 2019-12-17 15:15 | ER ---
Nurse's Notes [facility] Name: Paulina Juarez Age: 89 yrs Sex: Female : 1930 Arrival Date: 12/17/2019 Time: 11:25 Bed 7 Private MD: Diagnosis: Chronic obstructive pulmonary disease with (acute) exacerbation Presentation: 12/16 11:33 Chief complaint: Patient states: "I have COPD and it just flared up this weekend. ca1 Reports difficulty breathing. Took Albuterol breathing treatment x 3 at 0900 today, helped a little bit for a few hours but I go back to having trouble breathing again" Denies cough, denies fever. Coronavirus screen: Proceed with normal triage. Patient denies a cough. Patient reports shortness of breath or difficulty breathing. Patient denies measured and/or subjective temperature greater than 100.4F prior to today's visit. Patient denies travel on a cruise ship or to a country the [facility] currently lists as an affected area. Patient denies contact with known and/or suspected case of COVID-19. Ebola Screen: Patient negative for fever greater than or equal to 101.5 degrees Fahrenheit, and additional compatible Ebola Virus Disease symptoms Patient denies exposure to infectious person. Patient denies travel to an Ebola-affected area in the 21 days before illness onset. No symptoms or risks identified at this time. Initial Sepsis Screen: Does the patient meet any 2 criteria? No. Patient's initial sepsis screen is negative. Does the patient have a suspected source of infection? No. Patient's initial sepsis screen is negative. Risk Assessment: Do you want to hurt yourself or someone else? Patient reports no desire to harm self or others. Onset of symptoms was December 17, 2019. 11:33 Method Of Arrival: Ambulatory ca1 11:33 Acuity: AGUSTINA 3 ca1 12:00 Acuity: AGUSTINA 2 hb Triage Assessment: 11:35 General: Appears in no apparent distress. uncomfortable, slender, Behavior is bp cooperative, appropriate for age, anxious. Pain: Denies pain. EENT: No deficits noted. Neuro: No deficits noted. Cardiovascular: No deficits noted. Respiratory: Reports shortness of breath at rest Onset: The symptoms/episode began/occurred at an unknown time. the patient has moderate shortness of breath. GI: No signs and/or symptoms were reported involving the gastrointestinal system. : No signs and/or symptoms were reported regarding the genitourinary system. Derm: No deficits noted. Musculoskeletal: No deficits noted. Historical: - Allergies: 11:40 Latex, Natural Rubber; ca1 - Home Meds: 11:40 Eliquis 2.5 mg Oral tab 1 tab 2 times per day [Active]; Toprol XL 50 mg Oral Tb24 1.5 ca1 tabs once daily [Active]; trelegy 100 mcg [Active]; theophylline 200 mg Oral Tb12 1 tab every 12 hours [Active]; allopurinol 300 mg Oral tab 1 tab once daily [Active]; Albuterol Inhl [Active]; - PMHx: 11:40 Asthma; COPD; ca1 - PSHx: 11:40 Cholecystectomy; Tonsillectomy; Tubal ligation; "open heart surgery to repair hole in ca1 the septum"; repair atrial septal defect; - Immunization history:: Adult Immunizations up to date, Pneumococcal vaccine is up to date, Flu vaccine is up to date. - Social history:: Smoking status: Patient denies any tobacco usage or history of. Patient/guardian denies using alcohol, street drugs, The patient lives with family. - Family history:: not pertinent. Screenin:00 Abuse screen: Denies threats or abuse. Denies injuries from another. Nutritional bp screening: No deficits noted. Tuberculosis screening: No symptoms or risk factors identified. Fall Risk None identified. Assessment: 11:40 General: SEE TRIAGE NOTE. Pain: Denies pain. Cardiovascular: Rhythm is sinus rhythm. bp Respiratory: Airway is patent Respiratory effort is labored, Breath sounds are diminished bilaterally. 14:58 Reassessment: NEB INFUSING. VS STABLE ON MONITOR Patient states feeling better. bp 15:32 Reassessment: PT D/C HOME AMBULATORY WITH FAMILY, DX WITH COPD EXACERBATION. bp Vital Signs: 11:33 BP 120 / 97; Pulse 77; Resp 22 S; Temp 97(TE); Pulse Ox 95% on R/A; Weight 50.35 kg ca1 (R); Height 5 ft. 4 in. (162.56 cm) (R); Pain 0/10; 12:00 BP 124 / 88; Pulse 76; Resp 32; Pulse Ox 89% on R/A; hb 12:49 Pulse 86; Resp 32; Pulse Ox 96% on 2 lpm NC; hb 14:56 BP 133 / 82; Pulse 79; Resp 20; Pulse Ox 100% ; bp 15:32 BP 129 / 76; Pulse 77; Resp 24; Temp 97.5; Pulse Ox 100% ; bp 11:33 Body Mass Index 19.05 (50.35 kg, 162.56 cm) ca1 ED Course: 11:25 Patient arrived in ED. ag5 11:38 Triage completed. ca1 11:40 Arm band placed on right wrist. ca1 11:41 Sukhwinder Looney MD is Attending Physician. ma2 11:51 Reji Zavala, GRICEL is Primary Nurse. bp 12:00 Patient has correct armband on for positive identification. Bed in low position. Call bp light in reach. Side rails up X2. Adult w/ patient. 12:06 BMP Sent. bd 12:32 Inserted saline lock: 20 gauge in right antecubital area, using aseptic technique. hb Blood collected. 13:04 XRAY CXR (1 view) In Process Unspecified. EDMS 13:26 EKG done, by nuclear medicine tech. reviewed by Sukhwinder Looney MD. at1 15:32 No provider procedures requiring assistance completed. IV discontinued, intact, bp bleeding controlled, No redness/swelling at site. Pressure dressing applied. Administered Medications: 11:57 Drug: DuoNeb (3:1) (2.5 mg - 0.5 mg) 3 ml Route: Nebulizer; hb 15:37 Follow up: Response: Marked relief of symptoms bp 12:00 Drug: AtroVENT Aerosol 0.5 mg Route: Inhalation; bp 12:00 Drug: Albuterol 2.5 mg Route: Inhalation; bp 12:40 Drug: SOLU-Medrol 125 mg Route: IVP; Site: right antecubital; hb 15:37 Follow up: Response: Marked relief of symptoms bp 12:40 Drug: Rocephin 1 grams Route: IV; Rate: calculated rate; Site: right antecubital; hb 15:37 Follow up: IV Status: Completed infusion; IV Intake: 20ml bp 13:10 Drug: AZITHromycin 500 mg Route: IVPB; Infused Over: 1 hrs; Site: right antecubital; hb 15:36 Follow up: IV Status: Completed infusion; IV Intake: 250ml bp 14:45 Drug: Albuterol - atroVENT (3:1) (2.5 mg - 0.5 mg) 3 ml Route: Nebulizer; bp 15:37 Follow up: Response: Marked relief of symptoms bp 14:45 Drug: Magnesium Sulfate 2 grams Route: IVPB; Infused Over: 2 hrs; Site: right bp antecubital; 15:36 Follow up: IV Status: Completed infusion; IV Intake: 50ml bp Intake: 15:36 IV: 50ml; Total: 50ml. bp 15:36 IV: 250ml; Total: 300ml. bp 15:37 IV: 20ml; Total: 320ml. bp Outcome: 15:15 Discharge ordered by . michelle 15:32 Discharged to home ambulatory, with family. bp 15:32 Condition: stable 15:32 Discharge instructions given to patient, Instructed on discharge instructions, follow up and referral plans. medication usage, Demonstrated understanding of instructions, follow-up care, medications, Prescriptions given X 3. 15:38 Patient left the ED. bp Signatures: Dispatcher [employer] EDMS Penny Brown Amanda, environmental health technologist EKG Tat1 Cornelia Holden, RN RN hb Reji Zavala RN RN bp Sukhwinder Looney MD MD ma2 Acob, Cheryl, RN RN ca1 Charito Kincaid ag5 Corrections: (The following items were deleted from the chart) 12:49 12:40 Acuity: AGUSTINA 2 hb hb
--- NOTE | 2019-12-17 15:15 | EDPHYS ---
Physician Documentation [facility] Name: Paulina Juarez Age: 89 yrs Sex: Female : 1930 Arrival Date: 12/17/2019 Time: 11:25 Bed 7 Private MD: ED Physician Sukhwinder Looney HPI: 12/16 15:11 This 89 yrs old Female presents to ER via Ambulatory with complaints of ma2 Breathing Difficulty. 15:11 The patient has shortness of breath at rest. Onset: The symptoms/episode began/occurred ma2 gradually, 1 day(s) ago. Associated signs and symptoms: Pertinent positives: non-productive cough, Pertinent negatives: dizziness, hemoptysis, loss of consciousness. Severity of symptoms: At their worst the symptoms were moderate in the emergency department the symptoms are unchanged. The patient has experienced similar episodes in the past. Historical: - Allergies: 11:40 Latex, Natural Rubber; ca1 - Home Meds: 11:40 Eliquis 2.5 mg Oral tab 1 tab 2 times per day [Active]; Toprol XL 50 mg Oral Tb24 1.5 ca1 tabs once daily [Active]; trelegy 100 mcg [Active]; theophylline 200 mg Oral Tb12 1 tab every 12 hours [Active]; allopurinol 300 mg Oral tab 1 tab once daily [Active]; Albuterol Inhl [Active]; - PMHx: 11:40 Asthma; COPD; ca1 - PSHx: 11:40 Cholecystectomy; Tonsillectomy; Tubal ligation; "open heart surgery to repair hole in ca1 the septum"; repair atrial septal defect; - Immunization history:: Adult Immunizations up to date, Pneumococcal vaccine is up to date, Flu vaccine is up to date. - Social history:: Smoking status: Patient denies any tobacco usage or history of. Patient/guardian denies using alcohol, street drugs, The patient lives with family. - Family history:: not pertinent. ROS: 15:11 Constitutional: Negative for fever, chills, and weight loss. ma2 15:11 All other systems are negative. Exam: 15:11 Head/Face: Normocephalic, atraumatic. ma2 15:11 Eyes: Pupils equal round and reactive to light, extra-ocular motions intact. Lids and lashes normal. Conjunctiva and sclera are non-icteric and not injected. Cornea within normal limits. Periorbital areas with no swelling, redness, or edema. ENT: Nares patent. No nasal discharge, no septal abnormalities noted. Tympanic membranes are normal and external auditory canals are clear. Oropharynx with no redness, swelling, or masses, exudates, or evidence of obstruction, uvula midline. Mucous membranes moist. Cardiovascular: Regular rate and rhythm with a normal S1 and S2. No gallops, murmurs, or rubs. Normal PMI, no JVD. No pulse deficits. 15:11 Abdomen/GI: Soft, non-tender, with normal bowel sounds. No distension or tympany. No guarding or rebound. No evidence of tenderness throughout. MS/ Extremity: Pulses equal, no cyanosis. Neurovascular intact. Full, normal range of motion. Neuro: Awake and alert, GCS 15, oriented to person, place, time, and situation. Cranial nerves II-XII grossly intact. Motor strength 5/5 in all extremities. Sensory grossly intact. Cerebellar exam normal. Normal gait. 15:11 Constitutional: The patient appears in obvious distress, moderately distressed. 15:11 Head/face: Noted is 15:11 Respiratory: moderate respiratory distress is noted, Respirations: labored breathing, Breath sounds: rhonchi, wheezing: Respiratory rate: 22 Vital Signs: 11:33 BP 120 / 97; Pulse 77; Resp 22 S; Temp 97(TE); Pulse Ox 95% on R/A; Weight 50.35 kg ca1 (R); Height 5 ft. 4 in. (162.56 cm) (R); Pain 0/10; 12:00 BP 124 / 88; Pulse 76; Resp 32; Pulse Ox 89% on R/A; hb 12:49 Pulse 86; Resp 32; Pulse Ox 96% on 2 lpm NC; hb 14:56 BP 133 / 82; Pulse 79; Resp 20; Pulse Ox 100% ; bp 15:32 BP 129 / 76; Pulse 77; Resp 24; Temp 97.5; Pulse Ox 100% ; bp 11:33 Body Mass Index 19.05 (50.35 kg, 162.56 cm) ca1 MDM: 11:41 Patient medically screened. ma2 15:11 Differential diagnosis: Anemia asthma, Bronchitis pulmonary edema, reactive airway ma2 disease. Data reviewed: vital signs, nurses notes. Counseling: I had a detailed discussion with the patient and/or guardian regarding: the historical points, exam findings, and any diagnostic results supporting the discharge/admit diagnosis, the presence of at least one elevated blood pressure reading (>120/80) during this emergency department visit, the need for outpatient follow up. Counseling: I had a detailed discussion with the patient and/or guardian regarding: the need for further work-up and treatment in the hospital. Response to treatment: the patient's symptoms have mildly improved after treatment. ED course: she need to be admitted i recommended that to her for copd, she would like to be discharged . 15:11 ED course: she understands risk of being tired from labored breathing and co2 retention ma2 and possible respiratory failure and . 12/16 11:55 Order name: Blood Culture Adult (2) [facility] 12/16 11:55 Order name: BMP [facility] 12/16 11:55 Order name: CBC with Diff; Complete Time: 14:15 [facility] 12/16 11:55 Order name: Ckmb; Complete Time: 14:15 [facility] 12/16 11:55 Order name: CPK; Complete Time: 14:15 [facility] 12/16 11:55 Order name: D-Dimer; Complete Time: 14:15 [facility] 12/16 11:55 Order name: Hepatic Function; Complete Time: 14:15 [facility] 12/16 11:55 Order name: Lipase; Complete Time: 14:15 [facility] 12/16 11:55 Order name: Magnesium; Complete Time: 14:15 [facility] 12/16 11:55 Order name: NT PRO-BNP; Complete Time: 14:15 [facility] 12/16 11:55 Order name: PT-INR; Complete Time: 14:15 [facility] 12/16 11:55 Order name: Ptt, Activated; Complete Time: 14:15 [facility] 12/16 11:55 Order name: Troponin (emerg Dept Use Only); Complete Time: 14:15 ia2 12/16 11:56 Order name: Basic Metabolic Panel; Complete Time: 14:15 EDMS 12/16 11:55 Order name: XRAY CXR (1 view); Complete Time: 14:15 ia2 12/16 11:55 Order name: EKG; Complete Time: 11:56 ia2 12/16 11:55 Order name: Cardiac monitoring; Complete Time: 12:41 ia2 12/16 11:55 Order name: EKG - Nurse/Tech; Complete Time: 12:41 ia2 12/16 11:55 Order name: IV Saline Lock; Complete Time: 12:41 ia2 12/16 11:55 Order name: Labs collected and sent; Complete Time: 12:41 ia2 12/16 11:55 Order name: O2 Per Protocol; Complete Time: 12:41 ia2 12/16 11:55 Order name: O2 Sat Monitoring; Complete Time: 12:41 ma2 Administered Medications: 11:57 Drug: DuoNeb (3:1) (2.5 mg - 0.5 mg) 3 ml Route: Nebulizer; hb 15:37 Follow up: Response: Marked relief of symptoms bp 12:00 Drug: AtroVENT Aerosol 0.5 mg Route: Inhalation; bp 12:00 Drug: Albuterol 2.5 mg Route: Inhalation; bp 12:40 Drug: SOLU-Medrol 125 mg Route: IVP; Site: right antecubital; hb 15:37 Follow up: Response: Marked relief of symptoms bp 12:40 Drug: Rocephin 1 grams Route: IV; Rate: calculated rate; Site: right antecubital; hb 15:37 Follow up: IV Status: Completed infusion; IV Intake: 20ml bp 13:10 Drug: AZITHromycin 500 mg Route: IVPB; Infused Over: 1 hrs; Site: right antecubital; hb 15:36 Follow up: IV Status: Completed infusion; IV Intake: 250ml bp 14:45 Drug: Albuterol - atroVENT (3:1) (2.5 mg - 0.5 mg) 3 ml Route: Nebulizer; bp 15:37 Follow up: Response: Marked relief of symptoms bp 14:45 Drug: Magnesium Sulfate 2 grams Route: IVPB; Infused Over: 2 hrs; Site: right bp antecubital; 15:36 Follow up: IV Status: Completed infusion; IV Intake: 50ml bp Disposition: 12/17/19 15:15 Discharged to Home. Impression: Chronic obstructive pulmonary disease with (acute) exacerbation. - Condition is Stable. - Discharge Instructions: Chronic Obstructive Pulmonary Disease. - Prescriptions for Albuterol Sulfate 2.5 mg /3 mL (0.083 %) Inhalation Solution for Nebulization - inhale 1 unit by NEBULIZATION route every 8 hours As needed; 1 box. Zithromax Z- Brad 250 mg Oral Tablet - take 1 tablet by ORAL route as directed for 5 days Day 1 - take two (2) tablets one time. Day 2, 3, 4 , 5 take one (1) tablet once daily.; 6 tablet. Medrol (Brad) 4 mg Oral Tablets, Dose Pack - take 1 tablet by ORAL route as directed - follow package instructions; 1 packet. - Medication Reconciliation Form, Thank You Letter, Antibiotic Education, Prescription Opioid Use form. - Follow up: Private Physician; When: Tomorrow; Reason: If symptoms return, Continuance of care. Signatures: Dispatcher [employer] EDMS Cornelia Holden RN RN Reji Zuniga RN RN bp Alzahri, Mohammad, MD MD ma2 Rylee Sam RN RN ca1 Corrections: (The following items were deleted from the chart) 15:38 15:15 12/17/2019 15:15 Discharged to Home. Impression: Chronic obstructive pulmonary bp disease with (acute) exacerbation. Condition is Stable. Prescriptions for Albuterol Sulfate 2.5 mg /3 mL (0.083 %) Inhalation Solution for Nebulization - inhale 1 unit by NEBULIZATION route every 8 hours As needed; 1 box, Zithromax Z-Brad 250 mg Oral Tablet - take 1 tablet by ORAL route as directed for 5 days Day 1 - take two (2) tablets one time. Day 2, 3, 4 , 5 take one (1) tablet once daily.; 6 tablet, Medrol (Brad) 4 mg Oral Tablets, Dose Pack - take 1 tablet by ORAL route as directed - follow package instructions; 1 packet. and Forms are Medication Reconciliation Form, Thank You Letter, Antibiotic Education, Prescription Opioid Use. Follow up: Private Physician; When: Tomorrow; Reason: If symptoms return, Continuance of care. ma2
[2019-12-17 15:50] VITALS: O2SAT 100
[2019-12-17 15:51] VITALS: BP 129/76; TEMP 97.5
--- NOTE | 2019-12-19 12:26 | EKG ---
Test Date: 2019-12-17 Test Time: 19:24:52 Cloud Automation Tester: TLT MEASUREMENT RESULTS: Intervals: Rate: 98 [place]: QRSD: 132 QT: 418 QTc: 533 [place]: P: [place]: QRS: 74 T: -69 INTERPRETIVE STATEMENTS: Atrial fibrillation with premature ventricular or aberrantly conducted complexes Right bundle branch block Voltage criteria for left ventricular hypertrophy T wave abnormality, consider inferolateral ischemia or digitalis effect Abnormal ECG Compared to ECG 12/17/2019 19:17:22 Ventricular premature complex(es) now present Right bundle-branch block now present Left ventricular hypertrophy now present T-wave abnormality now present Possible ischemia now present Electronically Signed On 12-19-19 12:22:42 CDT by Moo Mann
--- NOTE | 2019-12-19 12:26 | EKG ---
Test Date: 2019-12-17 Test Time: 19:26:32 Correctional Case Manager: TLT MEASUREMENT RESULTS: Intervals: Rate: 94 [place]: QRSD: 128 QT: 424 QTc: 530 [place]: P: [place]: QRS: 79 T: -74 INTERPRETIVE STATEMENTS: Atrial fibrillation Left ventricular hypertrophy with QRS widening T wave abnormality, consider inferior ischemia or digitalis effect T wave abnormality, consider anterolateral ischemia or digitalis effect Abnormal ECG Compared to ECG 12/17/2019 19:24:52 Ventricular premature complex(es) no longer present Right bundle-branch block no longer present T-wave abnormality still present Possible ischemia still present Electronically Signed On 12-19-19 12:22:41 CDT by Moo Mann
--- NOTE | 2019-12-19 12:27 | EKG ---
Test Date: 2019-12-17 Test Time: 19:17:22 Pipe Smoking Machine Operator: TLT MEASUREMENT RESULTS: Intervals: Rate: 0 [place]: QRSD: 0 QT: 0 QTc: 0 [place]: P: [place]: QRS: 0 T: 0 INTERPRETIVE STATEMENTS: No QRS complexes found, no ECG analysis possible Compared to ECG 12/17/2019 13:23:35 Atrial fibrillation no longer present Ventricular premature complex(es) no longer present Right bundle-branch block no longer present Left ventricular hypertrophy no longer present T-wave abnormality no longer present Possible ischemia no longer present Electronically Signed On 12-19-19 12:22:43 CDT by Moo Mann
== END 2019-12-17 15:38 | disposition home or self-care (01) ==
LOC: ER 11:23
DX: J44.1 Chronic obstructive pulmonary disease with (acute) exacerbation (principal); Z79.01 Long term (current) use of anticoagulants; Z91.040 Latex allergy status; Z91.048 Other nonmedicinal substance allergy status
CPT/HCPCS: 36415; 71045; 80048; 80076; 82550; 82553; 83690; 83735; 83880; 84484; 85025; 85379; 85610; 85730; 87040; 93005; 96365; 96367; 96375; 99285; J0456; J0696; J2930; J3475; J7030

== ENCOUNTER 2019-12-17 18:37 | Inpatient (IN) | payer OTHER ==
--- NOTE | 2019-12-17 18:51 | EDPHYS ---
Physician Documentation [facility] [place] [place] Name: Paulina Juarez Age: 89 yrs Sex: Female : 1930 Arrival Date: 12/17/2019 Time: 18:42 Bed 5 Private MD: ED Physician Sukhwinder Looney HPI: 12/16 18:48 This 89 yrs old Female presents to ER via Unassigned with complaints of ma2 Shortness Of Breath. 18:48 The patient has shortness of breath at rest. Duration: The symptoms are continuous. ma2 Associated signs and symptoms: Pertinent negatives: productive cough, fever, loss of consciousness, nausea. Severity of symptoms: At their worst the symptoms were moderate in the emergency department the symptoms are unchanged. The patient has experienced similar episodes in the past. hx of COPD she was here earlier and offered admission but she left, now she is back discussed with dr. narayanan will admit her. . 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 - Social history:: Patient/guardian denies using alcohol, street drugs, The patient lives with spouse, Smoking status: Patient denies any tobacco usage or history of. - Family history:: not pertinent. ROS: 18:48 Constitutional: Negative for fever, chills, and weight loss. ma2 18:48 All other systems are negative. Exam: 18:48 Constitutional: This is a well developed, well nourished patient who is awake, alert, ma2 and in no acute distress. ENT: Nares patent. No nasal discharge, no septal abnormalities noted. Tympanic membranes are normal and external auditory canals are clear. Oropharynx with no redness, swelling, or masses, exudates, or evidence of obstruction, uvula midline. Mucous membranes moist. Neck: Trachea midline, no thyromegaly or masses palpated, and no cervical lymphadenopathy. Supple, full range of motion without nuchal rigidity, or vertebral point tenderness. No Meningismus. Chest/axilla: Normal chest wall appearance and motion. Nontender with no deformity. No lesions are appreciated. Cardiovascular: Regular rate and rhythm with a normal S1 and S2. No gallops, murmurs, or rubs. Normal PMI, no JVD. No pulse deficits. 18:48 Skin: Warm, dry with normal turgor. Normal color with no rashes, no lesions, and no evidence of cellulitis. MS/ Extremity: Pulses equal, no cyanosis. Neurovascular intact. Full, normal range of motion. Neuro: Awake and alert, GCS 15, oriented to person, place, time, and situation. Cranial nerves II-XII grossly intact. Motor strength 5/5 in all extremities. Sensory grossly intact. Cerebellar exam normal. Normal gait. 18:48 Respiratory: moderate respiratory distress is noted, Respirations: labored breathing, Breath sounds: rhonchi, wheezing: Vital Signs: 19:04 BP 127 / 96; Pulse 100; Resp 22; Temp 97.6(TE); Pulse Ox 93% on R/A; Weight 50.35 kg ca1 (R); Height 5 ft. 4 in. (162.56 cm) (R); 20:29 BP 154 / 96; Pulse 99; Resp 21 S; Pulse Ox 94% on R/A; jd3 21:19 BP 142 / 89; Pulse 94; Resp 24 S; Pulse Ox 93% on R/A; jd3 19:04 Body Mass Index 19.05 (50.35 kg, 162.56 cm) ca1 MDM: 18:48 Differential diagnosis: Anemia Bronchitis Chronic Obstructive Pulmonary Disease ma2 reactive airway disease. Data reviewed: vital signs, nurses notes. Counseling: I had a detailed discussion with the patient and/or guardian regarding: the historical points, exam findings, and any diagnostic results supporting the discharge/admit diagnosis, the presence of at least one elevated blood pressure reading (>120/80) during this emergency department visit, the need for further work-up and treatment in the hospital. 18:50 Patient medically screened. [facility] 12/16 18:54 Order name: Basic Metabolic Panel [facility] 12/16 18:54 Order name: Basic Metabolic Panel [facility] 12/16 18:54 Order name: NT PRO-BNP [facility] 12/16 18:54 Order name: NT PRO-BNP [facility] 12/16 18:56 Order name: CBC with Automated Diff [facility] 12/16 18:56 Order name: CBC with Automated Diff [facility] 12/16 18:51 Order name: Cardiac monitoring; Complete Time: 19:28 [facility] 12/16 18:56 Order name: Regular [facility] 12/16 18:56 Order name: Troponin I [facility] 12/16 18:56 Order name: Troponin I [facility] 12/16 18:56 Order name: Troponin I [facility] 12/16 19:21 Order name: COVID-19 12/16 18:51 Order name: EKG - Nurse/Tech; Complete Time: 19:28 [facility] 12/16 18:51 Order name: IV Saline Lock; Complete Time: 20:03 [facility] 12/16 18:51 Order name: Labs collected and sent; Complete Time: 19:35 [facility] 12/16 18:51 Order name: O2 Per Protocol; Complete Time: 19:11 [facility] 12/16 18:51 Order name: O2 Sat Monitoring; Complete Time: 19:11 [facility] Administered Medications: 19:28 Drug: AtroVENT Aerosol 0.5 mg Route: Inhalation; jd3 19:28 Drug: Xopenex 1.25 mg Route: Inhalation; jd3 22:00 Follow up: Response: No adverse reaction jd3 19:40 Drug: AtroVENT Aerosol 0.5 mg Route: Inhalation; jd3 20:15 Drug: AtroVENT Aerosol 0.5 mg Route: Inhalation; jd3 22:00 Follow up: Response: No adverse reaction jd3 Disposition: 12/17/19 18:50 Hospitalization ordered by Seng Narayanan for Inpatient Admission. Preliminary diagnosis is Chronic obstructive pulmonary disease with (acute) exacerbation. - Bed requested for Telemetry/MedSurg (Inpatient). - Status is Inpatient Admission. mw2 - Condition is Stable. - Problem is new. - Symptoms are unchanged. Signatures: Dispatcher [employer] Jeanne Singh RN RN dw Markos Hickey RN RN jd3 Sukhwinder Looney MD MD ma2 Douglas Cesar mw2 Rylee Sam RN RN ca1 Corrections: (The following items were deleted from the chart) 19:25 18:50 Hospitalization Ordered by Seng Narayanan MD for Inpatient Admission. Preliminary dw diagnosis is Chronic obstructive pulmonary disease with (acute) exacerbation. Bed requested for Telemetry/MedSurg (Inpatient). Status is Inpatient Admission. Condition is Stable. Problem is new. Symptoms are unchanged. ma2 22:07 19:25 12/17/2019 18:50 Hospitalization Ordered by Seng Narayanan MD for Inpatient mw2 Admission. Preliminary diagnosis is Chronic obstructive pulmonary disease with (acute) exacerbation. Bed requested for Telemetry/MedSurg (Inpatient). Status is Inpatient Admission. Condition is Stable. Problem is new. Symptoms are unchanged. dw
[2019-12-17] MEDS ORDERED: IPRATROPIUM BROM 0.5MG/2.5ML NEB PRN (18:52)
[2019-12-17] MEDS ORDERED: ALBUTEROL 2.5 MG/3 ML NEB SOL NEB PRN (18:52)
[2019-12-17] MEDS ORDERED: IPRATROPIUM BROM 0.5MG/2.5ML ONE (19:23)
[2019-12-17] MEDS ORDERED: LEVALBUTEROL 1.25 MG/3 ML NEB ONE (19:24)
[2019-12-17] MEDS ORDERED: AZITHROMYCIN IV 250 MG in NA CHLORIDE 0.9% 250 ML IVPB SCH (20:00)
[2019-12-17] MEDS ORDERED: CEFTRIAXONE/SWI 1gm 1 GM/10 ML SYR IV SCH (21:00)
--- NOTE | 2019-12-17 22:08 | ER ---
Nurse's Notes [facility] Name: Paulina Juarez Age: 89 yrs Sex: Female : 1930 Arrival Date: 12/17/2019 Time: 18:42 Bed 5 Private MD: Diagnosis: Chronic obstructive pulmonary disease with (acute) exacerbation Presentation: 12/16 19:04 Chief complaint: Spouse and/or significant other states: Was here today for difficulty ca1 breathing, was advised to be admitted but she did not want to stay. When we got home, she feels worse and more short of breath. Coronavirus screen: Surgical mask placed on patient. Patient moved to private room, placed in contact and droplet isolation with eye protection until further assessment. Patient denies a cough. Patient reports shortness of breath or difficulty breathing. Patient denies measured and/or subjective temperature greater than 100.4F prior to today's visit. Patient denies travel on a cruise ship or to a country the [facility] currently lists as an affected area. Patient denies contact with known and/or suspected case of COVID-19. Ebola Screen: Patient negative for fever greater than or equal to 101.5 degrees Fahrenheit, and additional compatible Ebola Virus Disease symptoms Patient denies exposure to infectious person. Patient denies travel to an Ebola-affected area in the 21 days before illness onset. No symptoms or risks identified at this time. Initial Sepsis Screen: Does the patient meet any 2 criteria? No. Patient's initial sepsis screen is negative. Does the patient have a suspected source of infection? No. Patient's initial sepsis screen is negative. Risk Assessment: Do you want to hurt yourself or someone else? Patient reports no desire to harm self or others. Onset of symptoms was December 17, 2019. 19:04 Method Of Arrival: Ambulatory ca1 19:04 Acuity: AGUSTINA 3 ca1 Triage Assessment: 20:31 Respiratory: Reports shortness of breath at rest Onset: The symptoms/episode jd3 began/occurred yesterday, the patient has mild shortness of breath. 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 - Social history:: Patient/guardian denies using alcohol, street drugs, The patient lives with spouse, Smoking status: Patient denies any tobacco usage or history of. - Family history:: not pertinent. Screenin:30 Abuse screen: Denies threats or abuse. Nutritional screening: No deficits noted. jd3 Tuberculosis screening: No symptoms or risk factors identified. Fall Risk IV access (20 points). Ambulatory Aid- None/Bed Rest/Nurse Assist (0 pts). Gait- Normal/Bed Rest/Wheelchair (0 pts) Mental Status- Oriented to own ability (0 pts). Total [place] Fall Scale indicates No Risk (0-24 pts). Assessment: 20:31 General: Appears in no apparent distress. uncomfortable, Behavior is calm, cooperative, jd3 appropriate for age. Pain: Denies pain. Neuro: Level of Consciousness is awake, alert, obeys commands, Oriented to person, place, time, situation. Cardiovascular: Denies chest pain, Capillary refill < 3 seconds Patient's skin is warm and dry. Rhythm is atrial fibrillation. Respiratory: Airway is patent Respiratory effort is labored, Respiratory pattern is symmetrical, tachypnea Breath sounds are diminished bilaterally. GI: No signs and/or symptoms were reported involving the gastrointestinal system. : No signs and/or symptoms were reported regarding the genitourinary system. EENT: No signs and/or symptoms were reported regarding the EENT system. Derm: Skin is intact, Skin is dry, Skin is normal, Skin temperature is warm. Musculoskeletal: Circulation, motion, and sensation intact. Range of motion: intact in all extremities. 20:37 Reassessment: No changes from previously documented assessment. Patient and/or family jd3 updated on plan of care and expected duration. Pain level reassessed. report attempt made. nurse reported to be busy, reported they will call back. 21:18 Reassessment: Patient appears in no apparent distress at this time. No changes from jd3 previously documented assessment. Patient and/or family updated on plan of care and expected duration. Pain level reassessed. pt reports some relief from shortness of breath, awaiting admitting nurse to call for report. Patient states symptoms have improved. Vital Signs: 19:04 BP 127 / 96; Pulse 100; Resp 22; Temp 97.6(TE); Pulse Ox 93% on R/A; Weight 50.35 kg ca1 (R); Height 5 ft. 4 in. (162.56 cm) (R); 20:29 BP 154 / 96; Pulse 99; Resp 21 S; Pulse Ox 94% on R/A; jd3 21:19 BP 142 / 89; Pulse 94; Resp 24 S; Pulse Ox 93% on R/A; jd3 19:04 Body Mass Index 19.05 (50.35 kg, 162.56 cm) ca1 ED Course: 18:42 Patient arrived in ED. as 18:48 Sukhwinder Looney MD is Attending Physician. ma2 18:50 Seng Chin MD is Hospitalizing Provider. ma2 19:06 Triage completed. ca1 19:07 Arm band placed on right wrist. ca1 19:10 Markos Hickey RN is Primary Nurse. jd3 19:56 Inserted saline lock: 20 gauge in right wrist, using aseptic technique. tt3 20:32 Patient has correct armband on for positive identification. Bed in low position. Call j light in reach. Side rails up X 1. Adult w/ patient. monitoring and evaluation advisor on. Pulse ox on. NIBP on. 21:59 No provider procedures requiring assistance completed. Patient admitted, IV remains in jd3 place. Administered Medications: 19:28 Drug: AtroVENT Aerosol 0.5 mg Route: Inhalation; jd3 19:28 Drug: Xopenex 1.25 mg Route: Inhalation; jd3 22:00 Follow up: Response: No adverse reaction jd3 19:40 Drug: AtroVENT Aerosol 0.5 mg Route: Inhalation; jd3 20:15 Drug: AtroVENT Aerosol 0.5 mg Route: Inhalation; jd3 22:00 Follow up: Response: No adverse reaction jd3 Outcome: 18:50 Decision to Hospitalize by Provider. ma2 21:59 Admitted to Med/surg accompanied by tech, via wheelchair, room 401, with chart, Report jd3 called to Elton MONSALVE 21:59 Condition: stable 21:59 Instructed on the need for admit, Demonstrated understanding of instructions. 22:07 Patient left the ED. mw2 Signatures: Julianne Medina Jonathon, RN RN jd3 Sukhwinder Looney MD MD ma2 Douglas Cesar mw2 Rylee Sam RN RN ca1 Ronald Hennessy tt3
[2019-12-18 00:14] VITALS: BMI 19.0
[2019-12-18] MEDS: prednisoLONE 15 MG/5 ML OSYR PO SCH ×3 (00:51→21:01)
[2019-12-18 03:12] LABS: Absolute Lymphocytes (CBC) 0.7 K/uL (0.7-4.9); Basophils % 0.3 % (0-1.3); Hematocrit 38.5 % (36.0-45.0); Lymphocytes % 9.9 % (15.3-44.8); MPV 8.9 fL (7.6-11.3); RBC Red Blood Cell Count 4.08 M/uL (3.86-4.86)
[2019-12-18 03:31] LABS: Potassium 3.9 mmol/L (3.5-5.1)
[2019-12-18 05:05] LABS: Blood Morphology Comment NOTED (NOT SEEN); Ovalocytes 2+; Platelet Estimate ADEQ
[2019-12-18] MEDS ORDERED: HOME MED 1 EA UNK (Allopurinol [Allopurinol] 300 MG) PO SCH (10:15)
[2019-12-18] MEDS: CEFTRIAXONE/SWI 1gm 1 GM/10 ML SYR IV SCH (11:51)
[2019-12-18] MEDS ORDERED: AZITHROMYCIN IV 250 MG in NA CHLORIDE 0.9% 250 ML IVPB SCH (12:00)
[2019-12-18] MEDS ORDERED: ACETAMINOPHEN 500 MG TAB ONE (17:50)
[2019-12-18] MEDS ORDERED: HOME MED 1 EA UNK (Metoprolol Tartrate [Lopressor*] 25 MG) PO SCH (21:00)
[2019-12-18] MEDS ORDERED: APIXABAN 2.5 MG PO SCH (21:00)
[2019-12-19] MEDS: CEFTRIAXONE/SWI 1gm 1 GM/10 ML SYR IV SCH (01:05)
--- NOTE | 2019-12-19 02:00 | HP ---
Date of Admission: 12/18/2019 Chief Complaint: Shortness of breath, cough, congestion. History Of Present Illness: Ms. Juarez is a very pleasant 89-year-old female patient with COPD problem, came into emergency room yesterday with complaints of cough, congestion, shortness of breath increasingly getting worse over last 2 to 3 days. Denies any fever, chills, nausea, vomiting. Denies any exposure to COVID-19 patients. After she came into emergency room, she was admitted and ER physician suggested her to get admitted to the hospital with acute exacerbation of COPD problem. Patient refused to get admitted and went home; and within few hours of leaving emergency room, she came back to emergency room. ER physician had prescribed her Medrol Dosepak and Z-Brad. She took her first dose of Z-Brad yesterday. After she was evaluated in the ER second time, she was admitted to the hospital. This morning, she is feeling better. As soon as I walked into her room, she told me she was ready to go home. Allergies: STATIN THERAPY CAUSING MYALGIA. Medications: List reviewed. Review of Systems: Respiratory: As mentioned above. Musculoskeletal: Chronic arthritis complaints. All other systems reviewed and negative. Past Medical History: Allergic rhinitis, hypothyroidism, COPD, hypertension, hyperlipidemia, chronic atrial fibrillation, diverticulosis, constipation, osteoarthritis at multiple sites, gout, osteoporosis. Past Surgical History: Cataract surgery, cholecystectomy, carpal tunnel syndrome surgery, and trigger finger surgery. Family History: Father had dementia. Mother had hypertension and heart disease. Social History: Prior history of smoking, not at present time. Use of alcohol, occasional use. Physical Examination: Vital Signs: Height 5 feet, 4 inches, weight 111 pounds, temperature 97.6, pulse 100, respiratory rate 22. General: Awake, alert, oriented, not in distress. HEENT: Head atraumatic, normocephalic. Conjunctivae nonerythematous. Sclerae white. Mouth, no thrush or edema noted. Ears/Nose, no mass, lesion, discharge noted. Neck: Supple. No JVD, lymph nodes, bruit, thyromegaly noted. Lungs: Bilateral good equal air entry, presence of some scattered wheezing especially in both lower lung regions. Not using any accessory muscles of respiration. There were some fine crackles also present in both lower lung regions. Heart: Normal heart sounds, no murmur or gallop. Abdomen: Soft, bowel sounds normal. No guarding, rigidity, tenderness, mass, hepatosplenomegaly, distention, or bruit noted. Extremities: No leg edema. No calf tenderness. Skin: No rash, ulcer, cellulitis. Lymphatics: No lymph node enlargement in neck, supraclavicular, infraclavicular region. Neuro: No focal neurological deficit. Chest: Unremarkable. External Genitalia: Deferred. Rectal: Deferred. Laboratory Data: Chest x-ray shows changes of COPD. WBC 7.1, hemoglobin 12.7, platelets 161. Sodium 141, potassium 3.9, chloride 108, bicarb 26, BUN 18, creatinine 0.69, glucose 142. Impression: 1. Acute exacerbation of chronic obstructive pulmonary disease. 2. Hypertension. 3. Hyperlipidemia. 4. Chronic atrial fibrillation. 5. Osteoporosis. 6. Osteoarthritis, multiple sites. 7. Gout. 8. Hypothyroidism. 9. Allergic rhinitis. 10. Constipation. 11. Diverticulosis. Plan: Admit patient to hospital for further evaluation and management of this problem. Patient is appropriate for inpatient and is expected to spend 2 midnights in hospital. Home medications will be continued per order. We will do IV antibiotic, ceftriaxone. Patient was advised to take her Zithromax supply from home use. Continue oxygen nebulizer treatment and I will see her tomorrow for followup. Details and plan of treatment discussed with her. ANTONIO/RENY Voice ID: [id number] MTDD
[2019-12-19 08:04] VITALS: BP 140/91; TEMP 97.4
[2019-12-19] MEDS ORDERED: HOME MED 1 EA UNK (Theophylline Anhydrous [Theo-24] 200 MG) PO SCH (09:00)
[2019-12-19] MEDS ORDERED: FLUTICASONE IH SCH (09:00)
[2019-12-19] MEDS ORDERED: [UNRECOGNIZED DRUG - OTHER] IH SCH (09:00)
[2019-12-19] MEDS ORDERED: UMECLIDIN IH SCH (09:00)
[2019-12-19] MEDS ORDERED: VILANTER IH SCH (09:00)
[2019-12-19] MEDS: prednisoLONE 15 MG/5 ML OSYR PO SCH (09:00)
[2019-12-19] MEDS ORDERED: HOME MED 1 EA UNK (Metoprolol Tartrate [Lopressor*] 50 MG) PO SCH (09:00)
[2019-12-19 09:19] VITALS: O2SAT 94
--- NOTE | 2019-12-20 02:37 | DS ---
Date of Discharge: 12/19/2019 Subjective: Patient was seen this morning for followup. She was sitting at bedside. Denied any complaints. No new problems. Overall, she feels better compared to yesterday and day before yesterday. Objective: Vital Signs: Reviewed. HEENT: Unremarkable. Lungs: Clear to auscultation. No wheezing. No rales. Heart: Sounds normal. Abdomen: Soft. Bowel sounds normal. No guarding, rigidity, tenderness, or distention. Laboratory Data: Chest x-ray shows changes of COPD and lab results reviewed from this admission. Discharge Medications And Instructions: 1. Continue all prior home medications. 2. Take azithromycin and methylprednisolone as prescribed from emergency room prior to this visit. 3. Follow up at my office next week on Tuesday or Tuesday. Discharge Diagnoses: 1. Acute exacerbation of chronic obstructive pulmonary disease. 2. Hypertension. 3. Hyperlipidemia. 4. Chronic atrial fibrillation. 5. Osteoporosis. 6. Osteoarthritis, multiple sites. 7. Gout. 8. Hypothyroidism. 9. Allergic rhinitis. 10. Constipation. 11. Diverticulosis. Hospital Course: 89-year-old female patient admitted to hospital with cough, congestion, shortness of breath. Please see dictated H and P for more information. After patient was evaluated in the emergency room, she was admitted. She was given steroid oxygen nebulizer treatment antibiotics which included oral azithromycin as well as IV ceftriaxone. Overall, her condition has improved and today she was discharged to go home in stable condition with above-mentioned medications and instructions. ANTONIO/MODL Voice ID: [id number] Report ID: [id number] ESTEFANÍA
== END 2019-12-19 09:45 | disposition home or self-care (01) | DRG 191 ==
LOC: ER 18:37 → ERHOLD 20:31 → 4TH 21:46 → 2ND 12-18 05:37
PROVIDERS: ADMIT Internal Medicine; ATTEND Internal Medicine
DX: J44.1 Chronic obstructive pulmonary disease with (acute) exacerbation (principal); I48.20 Chronic atrial fibrillation, unspecified; I10 Essential (primary) hypertension; E78.5 Hyperlipidemia, unspecified; M81.0 Age-related osteoporosis without current pathological fracture; M19.90 Unspecified osteoarthritis, unspecified site; M10.9 Gout, unspecified; E03.9 Hypothyroidism, unspecified; J30.9 Allergic rhinitis, unspecified; K59.00 Constipation, unspecified; K57.90 Diverticulosis of intestine, part unspecified, without perforation or abscess without bleeding; R05 Cough; R06.02 Shortness of breath; Z79.01 Long term (current) use of anticoagulants; Z79.899 Other long term (current) drug therapy; Z91.040 Latex allergy status; Z90.49 Acquired absence of other specified parts of digestive tract; Z88.8 Allergy status to other drugs, medicaments and biological substances; Z87.891 Personal history of nicotine dependence; Z20.828 Contact with and (suspected) exposure to other viral communicable diseases; Z98.51 Tubal ligation status
CPT/HCPCS: 36415; 71045; 80048; 80076; 82550; 82553; 83690; 83735; 83880; 84484; 85025; 85379; 85610; 85730; 87040; 93005; 94760; 96365; 96367; 96375; 99285; J0456; J0696; J2930; J3475; J7030; J7510; U0002

== ENCOUNTER 2020-02-08 14:46 | Emergency (ER) | payer OTHER ==
--- NOTE | 2020-02-08 15:53 | RAD REPORT ---
EXAM DESCRIPTION: RAD - Chest Single View - 02/08/2020 3:45 pm CLINICAL HISTORY: CHEST PAIN Chest pain. COMPARISON: Chest Single View dated 12/17/2019; Chest Single View dated 09/20/2018; Chest Single View dated 03/02/2018; Chest Single View dated 03/01/2018; Chest For Pe Angio dated 03/02/2018 FINDINGS: Portable technique limits examination quality. Emphysematous changes are present with linear atelectasis in both mid lungs. Marked cardiomegaly. Aft er wires are present. IMPRESSION: Marked cardiomegaly.
[2020-02-08 16:05] LABS: Absolute Lymphocytes (CBC) 0.9 K/uL (0.7-4.9); Basophils % 0.8 % (0-1.3); Lymphocytes % 13.5 % (15.3-44.8); RBC Red Blood Cell Count 4.29 M/uL (3.86-4.86)
[2020-02-08 16:06] LABS: Protime INR 1.25
[2020-02-08 16:24] LABS: ALT/SGPT 21 U/L (12-78); AST/SGOT 22 U/L (15-37); Albumin 3.7 g/dL (3.4-5.0); Alkaline Phosphatase 60 U/L (45-117); BUN Blood Urea Nitrogen 22 mg/dL (7-18); Bicarbonate 30 mmol/L (21-32); Bilirubin Direct 0.1 mg/dL (0-0.2); Bilirubin Total 0.4 mg/dL (0.2-1.0); Glucose Level 146 mg/dL (74-106); Magnesium 2.5 mg/dL (1.8-2.4); NT PRO-BNP 4319 pg/mL (<450); Potassium 4.2 mmol/L (3.5-5.1); Protein, Total 6.9 g/dL (6.4-8.2); Sodium Level 141 mmol/L (136-145); Troponin (Emerg Dept Use Only) < 0.02 ng/mL (0.0-0.045)
[2020-02-08] MEDS ORDERED: hydroCHLOROthiazide 25 MG TAB ONE (17:36)
--- NOTE | 2020-02-08 18:30 | ER ---
Nurse's Notes [facility] Name: Paulina Juarez Age: 89 yrs Sex: Female : 1930 Arrival Date: 02/08/2020 Time: 14:48 Bed 25 Private MD: Diagnosis: Chronic atrial fibrillation;Edema, unspecified;Cardiomegaly Presentation: 02/07 15:01 Chief complaint: Patient states: "yesterday I was having neck pain and I noticed that I jd3 could see beating on the sides of my neck. I just wanted to get seen by the doctor to make sure everything was ok. my pain is not as bad, but I can still see the beating in my neck.". Coronavirus screen: At this time, the client does not indicate any symptoms associated with coronavirus-19. Ebola Screen: Patient negative for fever greater than or equal to 101.5 degrees Fahrenheit, and additional compatible Ebola Virus Disease symptoms. Initial Sepsis Screen: Does the patient meet any 2 criteria? No. Patient's initial sepsis screen is negative. Does the patient have a suspected source of infection? No. Patient's initial sepsis screen is negative. Risk Assessment: Do you want to hurt yourself or someone else? Patient reports no desire to harm self or others. Onset of symptoms was February 08, 2020. 15:01 Method Of Arrival: Ambulatory jd3 15:24 Acuity: AGUSTINA 2 ls4 Triage Assessment: 15:25 General: Appears comfortable, Behavior is calm, cooperative. Pain: Complains of pain in ls4 right clavicle and left clavicle Pain currently is 3 out of 10 on a pain scale. Neuro: Level of Consciousness is awake, alert, obeys commands, Oriented to person, place, time, situation, Denies weakness blurred vision dizziness, difficulty swallowing, paresthesias numbness headache photophobia diplopia. Cardiovascular: Reports palpitations, shortness of breath, Denies chest pain, diaphoresis, fatigue, lightheadedness, nausea, shortness of breath, syncope, vomiting, Capillary refill < 3 seconds JVD on right Patient's skin is warm and dry. Rhythm is atrial fibrillation With PVC's Chest pain is denied. Respiratory: Airway is patent Respiratory effort is labored, Respiratory pattern is Breath sounds are clear bilaterally. GI: No deficits noted. No signs and/or symptoms were reported involving the gastrointestinal system. : No deficits noted. No signs and/or symptoms were reported regarding the genitourinary system. Derm: No deficits noted. No signs and/or symptoms reported regarding the dermatologic system. Musculoskeletal: No deficits noted. No signs and/or symptoms reported regarding the musculoskeletal system. Historical: - Allergies: 15:05 Latex, Natural Rubber; jd3 - Home Meds: 15:05 Albuterol Inhl [Active]; allopurinol 300 mg Oral tab 1 tab once daily [Active]; Eliquis jd3 2.5 mg Oral tab 1 tab 2 times per day [Active]; theophylline 200 mg Oral Tb12 1 tab every 12 hours [Active]; Toprol XL 50 mg Oral Tb24 1.5 tabs once daily [Active]; trelegy 100 mcg [Active]; - PMHx: 15:05 Asthma; COPD; Atrial Fib; jd3 - PSHx: 15:05 Cholecystectomy; Tonsillectomy; Tubal ligation; "open heart surgery to repair hole in jd3 the septum"; repair atrial septal defect; - Immunization history:: Adult Immunizations up to date. - Social history:: Smoking status: Patient/guardian denies using tobacco, but has a distant history of tobacco abuse. Screenin:24 Abuse screen: Denies threats or abuse. Denies injuries from another. Nutritional ls4 screening: No deficits noted. Tuberculosis screening: No symptoms or risk factors identified. Fall Risk None identified. Assessment: 15:55 Reassessment: Patient appears in no apparent distress at this time. No changes from ls4 previously documented assessment. Patient and/or family updated on plan of care and expected duration. Pain level reassessed. Patient is alert, oriented x 3, equal unlabored respirations, skin warm/dry/pink. 17:15 Reassessment: Patient appears in no apparent distress at this time. No changes from ls4 previously documented assessment. Patient and/or family updated on plan of care and expected duration. Pain level reassessed. Patient is alert, oriented x 3, equal unlabored respirations, skin warm/dry/pink. 18:17 Reassessment: Patient appears in no apparent distress at this time. Patient and/or ls4 family updated on plan of care and expected duration. Pain level reassessed. Patient is alert, oriented x 3, equal unlabored respirations, skin warm/dry/pink. Vital Signs: 15:05 BP 133 / 86; Pulse 82; Resp 20 S; Pulse Ox 94% on R/A; Weight 52.16 kg (R); Height 5 jd3 ft. 3 in. (160.02 cm) (R); Pain 7/10; 15:56 BP 131 / 83; Pulse 74; Resp 22; Pulse Ox 94% on 2 lpm NC; ls4 17:09 BP 146 / 82; Pulse 75; Resp 23; Pulse Ox 95% on 2 lpm NC; Pain 3/10; ls4 18:54 BP 138 / 84; Pulse 76; Resp 22; Pulse Ox 95% on 2 lpm NC; Pain 3/10; ls4 15:05 Body Mass Index 20.37 (52.16 kg, 160.02 cm) jd3 ED Course: 14:48 Patient arrived in ED. ds1 15:03 Triage completed. jd3 15:06 Christie Ponce FNP-C is PHCP. kb 15:06 Dino Corrales MD is Attending Physician. kb 15:06 Arm band placed on. jd3 15:10 Patient has correct armband on for positive identification. Bed in low position. Call ls4 light in reach. Side rails up X 1. reports developer on. Pulse ox on. NIBP on. 15:10 Verbal reassurance given. ls4 15:10 No provider procedures requiring assistance completed. Oxygen administration via nasal ls4 cannula \\T\\ 2L/min. 15:23 Isabelle Almaraz, RN is Primary Nurse. ls4 15:28 EKG done, by ED staff, reviewed by Dino Corrales MD. ls4 15:44 XRAY Chest (1 view) In Process Unspecified. EDMS 15:55 Initial lab(s) drawn, by me, by ED staff, X-ray(s) taken. Inserted saline lock: 20 ls4 gauge in left antecubital area, using aseptic technique. Blood collected. 15:57 PHCP role handed off by Christie Ponce FNP-C snw 15:57 Fozia Parmar FNP-C is PHCP. snw 18:54 IV discontinued, intact, bleeding controlled, No redness/swelling at site. Pressure ls4 dressing applied. Administered Medications: 17:31 Drug: Hydrochlorothiazide 25 mg Route: PO; ls4 18:04 Follow up: Response: No adverse reaction; Marked relief of symptoms ls4 Outcome: 18:29 Discharge ordered by MD. newman 18:53 Discharged to home ambulatory. ls4 18:53 Condition: good 18:53 Discharge instructions given to patient, Instructed on discharge instructions, follow up and referral plans. medication usage, Demonstrated understanding of instructions, follow-up care, medications, Prescriptions given X 1. 18:55 Patient left the ED. ls4 Signatures: Dispatcher [employer] EDMN Christie Ponce, BARK SPUDDER-C BARK SPUDDER-Ckb Fozia Parmar, BARK SPUDDER-C BARK SPUDDER-Csnw Faith Dunn ds1 Markos Hickey RN RN jd3 Isabelle Almaraz RN RN ls4 Corrections: (The following items were deleted from the chart) 15:24 15:01 Acuity: AGUSTINA 4 jd3 ls4
--- NOTE | 2020-02-08 18:30 | EDPHYS ---
Physician Documentation [facility] Name: Paulina Juarez Age: 89 yrs Sex: Female : 1930 Arrival Date: 02/08/2020 Time: 14:48 Bed 25 Private MD: ED Physician Dino Corrales HPI: 02/07 15:40 This 89 yrs old Female presents to ER via Ambulatory with complaints of kb Irregular Pulse. 15:42 The patient presents with a history of prominent pulse in neck. Context: The symptoms kb occur at rest. Onset: The symptoms/episode began/occurred today. Duration: The patient or guardian reports a single episode, that is still ongoing. Modifying factors: The symptoms are aggravated by nothing. The symptoms are alleviated by nothing. Associated signs and symptoms: Pertinent positives: SOB, Pertinent negatives: anxiety, chest pain, cough, fever, lightheadedness, nausea, syncope, near-syncope, unusual stressors, vertigo, vomiting. Severity of symptoms: At their worst the symptoms were moderate in the emergency department the symptoms are unchanged. The patient has not experienced similar symptoms in the past. The patient has not recently seen a physician. Pt reports she had some pain in her neck and when she looked in the mirror she saw her arteries pulsating so she came to have it checked out. Reports shortness of breath that has been going on for years and intermittent right sided chest pain that has been going on for years as well. . Historical: - Allergies: 15:05 Latex, Natural Rubber; jd3 - Home Meds: 15:05 Albuterol Inhl [Active]; allopurinol 300 mg Oral tab 1 tab once daily [Active]; Eliquis jd3 2.5 mg Oral tab 1 tab 2 times per day [Active]; theophylline 200 mg Oral Tb12 1 tab every 12 hours [Active]; Toprol XL 50 mg Oral Tb24 1.5 tabs once daily [Active]; trelegy 100 mcg [Active]; - PMHx: 15:05 Asthma; COPD; Atrial Fib; jd3 - PSHx: 15:05 Cholecystectomy; Tonsillectomy; Tubal ligation; "open heart surgery to repair hole in jd3 the septum"; repair atrial septal defect; - Immunization history:: Adult Immunizations up to date. - Social history:: Smoking status: Patient/guardian denies using tobacco, but has a distant history of tobacco abuse. ROS: 15:42 Constitutional: Negative for fever, chills, and weight loss, ENT: Negative for injury, kb pain, and discharge, Abdomen/GI: Negative for abdominal pain, nausea, vomiting, diarrhea, and constipation, Back: Negative for injury and pain, MS/Extremity: Negative for injury and deformity, Skin: Negative for injury, rash, and discoloration, Neuro: Negative for headache, weakness, numbness, tingling, and seizure. 15:42 Neck: Positive for pain at rest. 15:42 Cardiovascular: Positive for chest pain. 15:42 Respiratory: Positive for shortness of breath, Negative for cough, dyspnea on exertion, hemoptysis, orthopnea, pleurisy, sputum production, wheezing. Exam: 15:42 Constitutional: This is a well developed, well nourished patient who is awake, alert, kb and in no acute distress. Head/Face: Normocephalic, atraumatic. ENT: Nares patent. No nasal discharge, no septal abnormalities noted. Tympanic membranes are normal and external auditory canals are clear. Oropharynx with no redness, swelling, or masses, exudates, or evidence of obstruction, uvula midline. Mucous membranes moist. Chest/axilla: Normal chest wall appearance and motion. Nontender with no deformity. No lesions are appreciated. Respiratory: Lungs have equal breath sounds bilaterally, clear to auscultation and percussion. No rales, rhonchi or wheezes noted. No increased work of breathing, no retractions or nasal flaring. Abdomen/GI: Soft, non-tender, with normal bowel sounds. No distension or tympany. No guarding or rebound. No evidence of tenderness throughout. Skin: Warm, dry with normal turgor. Normal color with no rashes, no lesions, and no evidence of cellulitis. MS/ Extremity: Pulses equal, no cyanosis. Neurovascular intact. Full, normal range of motion. Neuro: Awake and alert, GCS 15, oriented to person, place, time, and situation. Cranial nerves II-XII grossly intact. Motor strength 5/5 in all extremities. Sensory grossly intact. Cerebellar exam normal. Normal gait. 15:42 Cardiovascular: Rate: normal, Rhythm: irregularly irregular, Pulses: no pulse deficits are appreciated, Heart sounds: normal, JVD: is noted bilaterally, more on right. Vital Signs: 15:05 BP 133 / 86; Pulse 82; Resp 20 S; Pulse Ox 94% on R/A; Weight 52.16 kg (R); Height 5 jd3 ft. 3 in. (160.02 cm) (R); Pain 7/10; 15:56 BP 131 / 83; Pulse 74; Resp 22; Pulse Ox 94% on 2 lpm NC; ls4 17:09 BP 146 / 82; Pulse 75; Resp 23; Pulse Ox 95% on 2 lpm NC; Pain 3/10; ls4 18:54 BP 138 / 84; Pulse 76; Resp 22; Pulse Ox 95% on 2 lpm NC; Pain 3/10; ls4 15:05 Body Mass Index 20.37 (52.16 kg, 160.02 cm) jd3 MDM: 15:06 Patient medically screened. kb 15:40 Data reviewed: vital signs, nurses notes. Data interpreted: Pulse oximetry: on room air kb is 94 %. Interpretation: normal. 15:57 Transition of care: After a detail discussion of the patient's case, care is kb transferred to [facility]. 02/07 15:24 Order name: Basic Metabolic Panel; Complete Time: 16:39 kb 02/07 15:24 Order name: CBC with Diff; Complete Time: 16:14 kb 02/07 15:24 Order name: LFT's; Complete Time: 16:39 kb 02/07 15:24 Order name: Magnesium; Complete Time: 16:39 kb 02/07 15:24 Order name: NT PRO-BNP; Complete Time: 16:39 kb 02/07 15:24 Order name: PT-INR; Complete Time: 16:14 kb 02/07 15:06 Order name: EKG; Complete Time: 15:07 kb 02/07 15:06 Order name: EKG - Nurse/Tech; Complete Time: 15:28 kb 02/07 15:24 Order name: Troponin (emerg Dept Use Only); Complete Time: 16:39 kb 02/07 15:24 Order name: XRAY Chest (1 view); Complete Time: 15:55 kb 02/07 15:24 Order name: Cardiac monitoring; Complete Time: 15:27 kb 02/07 18:03 Order name: Urine Microscopic Only; Complete Time: 18:47 snw 02/07 18:33 Order name: Urine Dipstick--Ancillary (enter results); Complete Time: 18:47 eb 02/07 15:24 Order name: IV Saline Lock; Complete Time: 15:28 kb 02/07 15:24 Order name: Labs collected and sent; Complete Time: 15:28 kb 02/07 15:24 Order name: O2 Per Protocol; Complete Time: 15:28 kb 02/07 15:24 Order name: O2 Sat Monitoring; Complete Time: 15:28 kb 02/07 18:03 Order name: Urine Dipstick-Ancillary (obtain specimen); Complete Time: 18:40 snw Administered Medications: 17:31 Drug: Hydrochlorothiazide 25 mg Route: PO; ls4 18:04 Follow up: Response: No adverse reaction; Marked relief of symptoms ls4 Disposition: 02/08/20 18:29 Discharged to Home. Impression: Chronic atrial fibrillation, Edema, unspecified, Cardiomegaly. - Condition is Stable. - Discharge Instructions: Atrial Fibrillation, Oxygen Use at Home, Peripheral Edema. - Prescriptions for Hydrochlorothiazide 25 mg Oral Tablet - take 1 tablet by ORAL route once daily .; 30 tablet. - Medication Reconciliation Form, Thank You Letter, Antibiotic Education, Prescription Opioid Use form. - Follow up: Emergency Department; When: As needed; Reason: Worsening of condition. Follow up: Private Physician; When: 5 - 6 days; Reason: Recheck today's complaints, Continuance of care, Re-evaluation by your physician. Addendum: 02/11/2020 08:23 Co-signature as Attending Physician, Dino Corrales MD I agree with the assessment and k dr plan of care. Signatures: Dispatcher [employer] EDAK Christie Ponce, STEEL SAMPLER-C STEEL SAMPLER-CkDino Stacy MD MD kdr Waters, Shelly STEEL SAMPLER-C STEEL SAMPLER-Abisaiw Markos Hickey RN RN Isabelle Jolly RN RN ls4 Corrections: (The following items were deleted from the chart) 02/07 18:55 18:29 02/08/2020 18:29 Discharged to Home. Impression: Chronic atrial fibrillation; ls4 Edema, unspecified; Cardiomegaly. Condition is Stable. Forms are Medication Reconciliation Form, Thank You Letter, Antibiotic Education, Prescription Opioid Use. Follow up: Emergency Department; When: As needed; Reason: Worsening of condition. Follow up: Private Physician; When: 5 - 6 days; Reason: Recheck today's complaints, Continuance of care, Re-evaluation by your physician. snw
[2020-02-08 18:42] LABS: Urine Bacteria <20 /HPF (<20); Urine Culture Reflex Order NOT NEEDED; Urine Mucus 1+ /HPF (NONE SEEN)
[2020-02-08 18:42] LABS: Urine Blood TRACE (NEG); Urine Glucose NEGATIVE (NEG); Urine Protein NEGATIVE (NEG); Urine pH 6.5 (5.0-7.0)
[2020-02-08 19:04] VITALS: O2SAT 95
[2020-02-08 19:06] VITALS: BP 138/84
--- NOTE | 2020-02-09 08:11 | EKG ---
Test Date: 2020-02-08 Test Time: 15:18:46 Aerospace Quality Engineer: CYNTHIA MEASUREMENT RESULTS: Intervals: Rate: 73 [place]: QRSD: 120 QT: 434 QTc: 478 [place]: P: [place]: QRS: 79 T: -78 INTERPRETIVE STATEMENTS: Atrial fibrillation with premature ventricular or aberrantly conducted complexes RSR' or QR pattern in V1 suggests right ventricular conduction delay Left ventricular hypertrophy with QRS widening ST & Marked T wave abnormality, consider anterolateral ischemia Abnormal ECG Compared to ECG 12/17/2019 19:26:32 Ventricular premature complex(es) now present RSR' in V1 or V2 now present T-wave abnormality still present Possible ischemia still present Electronically Signed On 02-09-20 08:09:27 CDT by Moo Mann
== END 2020-02-08 18:55 | disposition home or self-care (01) ==
LOC: ER 14:46
DX: I48.20 Chronic atrial fibrillation, unspecified (principal); I51.7 Cardiomegaly; R60.9 Edema, unspecified; J45.909 Unspecified asthma, uncomplicated; J44.9 Chronic obstructive pulmonary disease, unspecified; Z91.040 Latex allergy status
CPT/HCPCS: 36415; 71045; 80048; 80076; 81003; 81015; 83735; 83880; 84484; 85025; 85610; 93005; 99285